=== PATIENT | female | born 1950 | race Caucasian/White ===

== ENCOUNTER → 2019-12-18 08:44 | Outpatient (CLI) | payer MEDICARE, SELFPAY ==
--- NOTE | 2019-12-18 09:13 | XR_ITS ---
PROCEDURE: XR DEXA AXIAL SKELETON CLINICAL HISTORY: POST MENOPAUSAL COMPARISON: No exams were available for comparison FINDINGS: Right femoral neck density is 0.683 grams/centimeters sq with T-score -1.5, osteopenia Total left proximal femur density 0.756 grams/centimeters sq with T-score -1.5, osteopenia L1-L4 density is 0.913 grams/centimeters sq with T-score -1.2, osteopenia IMPRESSION: Osteopenia with moderate fracture risk. Treatment advised. Suggest follow-up exam in 2 years Dictated by: Jose Boyd MD 12/18/2019 17:17 Electronically signed by Jose Boyd MD in [place] 12/18/2019 17:17
--- NOTE | 2019-12-18 11:05 | MM_ITS ---
PROCEDURE: MM DIG MAMM BI DX W/CAD Digital Breast Tomosynthesis Included CLINICAL INDICATION: PALPABLE RT BREAST NODULE, patient has had recent fall There is no personal or family history of breast cancer. The patient had previous mammograms but over 30 years ago and they are not available for review COMPARISON: US BREAST RT COMPLETE from 12/22/2019 TECHNIQUE: Standard CC and MLO images and 3D Tomosynthesis was obtained. R2 CAD reviewed. FINDINGS: Moderate diffuse fibroglandular densities are seen in the central portions of both breasts. There are numerous scattered microcalcifications a few of which suggest previous secretory disease, most of which are likely secondary to to sclerosing adenosis. There is a dominant asymmetric density with somewhat irregular borders upper inner quadrant right breast likely due to the palpable nodule. This could represent a hematoma in view of the recent injury. However ultrasound performed the same date showed a solid somewhat heterogenic appearing lesion more typical of a fibroadenoma corresponding in size and location to the palpable lesion. In view of the size of lesion measuring 2.9 x 3.5 x 2.1 cm and the lack of previous mammograms available for comparison, I would recommend biopsy of this lesion which could be performed with ultrasound guidance. IMPRESSION: . moderate somewhat heterogenic breast density with asymmetric density corresponding to the palpable nodule upper inner quadrant BI-RAD Category: 4 Suspicious Abnormality - Biopsy Considered FOLLOW-UP: BIO Biopsy Recommended (A letter has been sent to the patient regarding results of the study.) Dictated by: Dr. Phil Dillon MD 12/24/2019 08:[address] Phil Dillon MD in [place] 12/24/2019 08:11
== END ==
PROVIDERS: PCP Internal Medicine Adolescent Medicine; Visit Provider Internal Medicine Adolescent Medicine
DX: Z13.820 Encounter for screening for osteoporosis; Z78.0 Asymptomatic menopausal state; N63.12 Unspecified lump in the right breast, upper inner quadrant
CPT/HCPCS: 77062; 77066; 77080; G0279

== ENCOUNTER → 2019-12-22 08:53 | Outpatient (CLI) | payer MEDICARE, SELFPAY ==
--- NOTE | 2019-12-22 08:56 | US_ITS ---
PROCEDURE: US BREAST LT COMPLETE CLINICAL INDICATION: COMPARISON: MM DIG MAMM BI DX W/CAD from 12/18/2019 US BREAST RT COMPLETE from 12/22/2019 FINDINGS: There is an oval hypoechoic mass outer breast 2 o'clock position by 1.2 cm with somewhat homogeneous echogenicity and well-defined borders and this likely is a fibroadenoma. There is a tiny hypoechoic cystic-appearing lesion near the nipple 2 o'clock position measuring 0.4 by 0.6 x 0.3 cm. This is too small to characterize but probably is a complex cyst. There is somewhat heterogenic echogenicity of the remainder of the breast parenchyma. IMPRESSION: Probable fibroadenoma and probable complex cysts as described and leave the patient should have a six-month follow-up ultrasound to evaluate for interval stability and if there is a suspicious interval changes and mammogram could be performed at the same sitting. BI-RADS category 3 Dictated by: Dr. Phil Dillon MD 12/24/2019 08:[address] Phil Dillon MD in [place] 12/24/2019 08:21
--- NOTE | 2019-12-22 08:56 | US_ITS ---
PROCEDURE: US BREAST RT COMPLETE CLINICAL INDICATION: BREAST LUMP Upper inner quadrant, patient had recent fall 2 weeks ago COMPARISON: No exams were available for comparison FINDINGS: There is a dominant somewhat hypoechoic heterogenic appearing mass 1 o'clock position upper inner quadrant outer breast measuring 2.9 by 3.5 x 2.1 cm with slightly lobulated contours. The lesion is somewhat vascular. In addition there is a 2nd hypoechoic nodule just beneath the nipple with homogeneous echogenicity measuring 1.9 by 4.2 cm. This could represent asymmetric glandular elements but more likely is a fibroadenoma which is somewhat suspicious in appearance lacking the normal architectural appearance of a normal node. IMPRESSION: Dominant solid somewhat heterogenic being mass upper inner quadrant corresponding to the palpable lesion which could represent a fibroadenoma but in view of the lobulated borders and overall size biopsy is recommended. Biopsy of the 2nd subareolar nodule should be considered as well at the same sitting. Dictated by: Dr. Phil Dillon MD 12/24/2019 08:[address] Phil Dillon MD in [place] 12/24/2019 08:16
== END ==
PROVIDERS: PCP Internal Medicine Adolescent Medicine; Visit Provider Internal Medicine Adolescent Medicine
DX: N63.12 Unspecified lump in the right breast, upper inner quadrant (principal); N63.21 Unspecified lump in the left breast, upper outer quadrant
CPT/HCPCS: 76641

== ENCOUNTER → 2021-03-16 14:27 | Outpatient (CLI) | payer MEDICARE, SELFPAY ==
[2021-03-16 15:30] LABS: Basophils % 0.5 % (0.1-2.0); Eosinophils # 0.2 K/mm3 (0.0-0.4); Eosinophils % 2.2 % (0.1-12.0); Hematocrit 40.4 % (37.0-47.0); Lymphocytes # 1.4 K/mm3 (0.7-4.5); Lymphocytes % 17.5 % (10-50); Mean Corpuscular HGB Conc 32.1 g/dL (31.8-35.4); Mean Corpuscular Hemoglobin 27.4 pg (27.0-31.2); Mean Corpuscular Volume 85.3 fl (81-99); Mean Platelet Volume 12.4 fl (7.4-10.4); Monocytes # 0.3 K/mm3 (0.1-1.0); Monocytes % 4.4 % (1.7-9.3); Neutrophils # 5.9 K/mm3 (1.8-7.8); Neutrophils % 75.4 % (37.0-80.0); Red Blood Count 4.73 M/mm3 (4.20-5.40); Red Cell Distribution Width 13.5 % (11.5-17.5); White Blood Count 7.8 K/mm3 (4.8-10.8)
[2021-03-16 15:57] LABS: Alanine Aminotransferase 13 U/L (12-78); Albumin Level 4.1 g/dl (3.5-5.0); Albumin/Globulin Ratio 1.6 (1.1-1.8); Alkaline Phosphatase 95 U/L (38-126); Anion Gap 13.9 mEq/L (5-15); Aspartate Amino Transferase 24 U/L (14-36); Bilirubin,Total 0.4 mg/dl (0.2-1.3); Blood Urea Nitrogen 15 mg/dl (7-17); Calcium 9.4 mg/dl (8.4-10.2); Carbon Dioxide 26 mmol/L (22.0-30.0); Chloride 105 mmol/L (98-107); Estimated Glomerular Filt Rate 82 ml/min (>60); GFR (African American) 100 ML/MIN (>60); Globulin 2.5 g/dL (1.3-3.2); Glucose 81 mg/dl (74-100); Potassium 4.9 mmoL/L (3.5-5.1); Sodium 140 mmol/L (136-145); Total Protein,Serum 6.6 g/dl (6.3-8.2)
[2021-03-16 16:22] LABS: Platelet Count 7 K/mm3 (142-424)
== END ==
PROVIDERS: Visit Provider Nurse Practitioner Family
DX: I10 Essential (primary) hypertension (principal)
CPT/HCPCS: 36415; 80053; 85025

== ENCOUNTER → 2021-09-30 11:03 | Outpatient (CLI) | payer MEDICARE, SELFPAY ==
--- NOTE | 2021-09-30 11:08 | MR_ITS ---
FINAL REPORT CLINICAL HISTORY: TREMOR, LYMPHOMA OF LYMPH NODES OF HEAD, ATAXIA FINDINGS: Multiplanar MR imaging of the brain was performed without contrast. There is mild age-appropriate atrophy. There are scattered foci of increased T2 signal in the cerebral white matter that have a nonspecific appearance but likely represent mild chronic ischemic/gliotic changes. There is no evidence of intracranial hemorrhage or mass. No abnormal ventricular dilatation is identified. No abnormal extra-axial fluid collection is seen. No abnormality is seen on the diffusion weighted images. The posterior fossa and brainstem are unremarkable. Normal major vessel vascular flow voids are seen. IMPRESSION: Age-appropriate atrophy and mild chronic ischemic/gliotic changes. No acute intracranial abnormality. Reviewed, Interpreted and Dictated by Ranjit Nettles III, MD Transcribed by Shelley Mcleod Authenticated by Ranjit Nettles III, MD on 09/30/2021 02:55:46 PM [facility]
== END ==
PROVIDERS: PCP Internal Medicine Adolescent Medicine; Visit Provider Internal Medicine Adolescent Medicine
DX: R25.1 Tremor, unspecified (principal); R27.0 Ataxia, unspecified; C85.91 Non-Hodgkin lymphoma, unspecified, lymph nodes of head, face, and neck
CPT/HCPCS: 70551

== ENCOUNTER → 2022-01-03 14:09 | Outpatient (CLI) | payer MEDICARE, SELFPAY ==
--- NOTE | 2022-01-03 14:15 | XR_ITS ---
FINAL REPORT CLINICAL HISTORY: LOW BACK PAIN IN MULTIPLY SITES FINDINGS: LUMBAR SPINE 5 views of the lumbar spine were obtained. There is no evidence of fracture or dislocation. There is leftward curvature. There is mild anterolisthesis of L4 on L5. There is mild and moderate degenerative change. There is facet arthropathy in the lower lumbar spine. Several pelvic calcifications may represent phleboliths. There is a presumed 11 mm left renal stone. IMPRESSION: [id number] degenerative change as above. Presumed 11 mm left renal stone. Reviewed, Interpreted and Dictated by Ranjit Nettles III, MD Transcribed by Marleen Martinez Authenticated and [facility]
== END ==
PROVIDERS: PCP Internal Medicine Adolescent Medicine; Visit Provider Internal Medicine Adolescent Medicine
DX: M54.50 Low back pain, unspecified (principal)
CPT/HCPCS: 72110

== ENCOUNTER 2022-06-26 10:13 | Observation (INO) | payer MEDICARE, SELFPAY ==
[2022-06-26] VITALS (16 sets, daily range): BP systolic 105–200; BP diastolic 43–88; PULSE 68–92; RESP 16–18; TEMP 36.6–37.2; O2SAT 95–99; BMI 34.0; BMI 32.5
--- NOTE | 2022-06-26 10:13 | ECG_ITS ---
APPROVED REPORT Exam: Resting ECG HR:91 bpm ECG Measurements Heart Rate 91 AXES PA 212 P 48 QRSd 94 QRS 60 QT 324 T 34 QTc 373 Conclusion SINUS RHYTHM WITH FIRST DEGREE AV BLOCK ABNORMAL ECG UNCONFIRMED REPORT Electronically signed by : Earle Rincon MD 06/27/2022 20:15:33
--- NOTE | 2022-06-26 10:16 | XR_ITS ---
PROCEDURE INFORMATION: Exam: XR Chest Exam date and time: 06/26/2022 10:32 AM Age: 72 years old Clinical indication: Pain; Chest pressure; Additional info: Chest pain TECHNIQUE: Imaging protocol: Radiologic exam of the chest. Views: 1 view. COMPARISON: No relevant prior studies available. FINDINGS: Lungs: No focal airspace disease. Pleural spaces: Unremarkable. No pleural effusion. No pneumothorax. Heart/Mediastinum: Cardiomediastinal silhouette is within normal limits. Bones/joints: Unremarkable. IMPRESSION: No acute cardiopulmonary abnormality.
--- NOTE | 2022-06-26 10:31 | PC.NURSE ---
DR. REVELES AT BEDSIDE
--- NOTE | 2022-06-26 10:32 | US_ITS ---
PROCEDURE INFORMATION: Exam: US Abdomen, Limited; Right Upper Quadrant Exam date and time: 06/26/2022 11:17 AM Age: 72 years old Clinical indication: Abdominal pain; Acute; Additional info: Ruq pain, one episode vomiting TECHNIQUE: Imaging protocol: Real time ultrasound of the abdomen with image documentation. Limited exam focused on the right upper quadrant. COMPARISON: No relevant prior studies available. FINDINGS: Liver: Normal size, contour and echotexture of the liver. There is a heterogeneous mildly hyperechoic lesion in the left hepatic lobe measuring up to 3 cm. Gallbladder: Cholelithiasis. There may be mild mural thickening with trace pericholecystic edema. The gallbladder is not overly distended. No sonographic King's sign was reported by the printing pressman. Biliary ducts: The common bile duct measures up to 5 mm. Query mild intrahepatic biliary dilation. Pancreas: Limited visualization of the pancreas. Visualized portions appear unremarkable. Right kidney: The right kidney measures up to 10.1 cm in length. No hydronephrosis. No masses. Portal venous: Patent main portal vein with antegrade flow. IMPRESSION: 1. Cholelithiasis with sonographic findings equivocal for cholecystitis. HIDA scan could provide further evaluation. 2. The common bile duct is of normal calibre, but there may be some mild intrahepatic biliary dilation. 3. There is a heterogeneous solid-appearing lesion in the left hepatic lobe measuring up to 3 cm. Recommend further evaluation with MRI with and without contrast.
--- NOTE | 2022-06-26 10:34 | HMH.EDGENADL ---
Discharge Plan Disposition Patient Disposition: Admitted As Inpatient Clinical Impressions Clinical Impression: Cholecystitis, COVID Discharge ED Provider: Bayron Hernandez General Adult HPI General Chief complaint: Chest Pain Stated complaint: CP Time Seen by Provider: 06/26/22 10:34 Mode of Arrival: Wheelchair Limitations: No Limitations Description of Symptoms (Recalled from ER Triage Doc. by RN): PT WITH CHEST PAIN AND PAIN UNDER RIGHT BREAST SINCE SUNDAY EVENING. History of Present Illness HPI narrative: Patient is a 72-year-old female with past medical history of tremor of the right upper extremity presents emergency department for evaluation of epigastric pain. Onset was acute, occurring for the last 3 days, 1 episode of nonbloody nonbilious vomiting, still passing flatus, still having bowel movements, no dysuria. There is associated right upper quadrant pain that is moderate to severe in intensity. No cough, no sick contacts, no other acute complaints at this time. Related Data Home Medications Medication Instructions Recorded Confirmed celecoxib 200 mg capsule 200 mg PO DAILY Arthritis 06/26/22 06/26/22 ergocalciferol (vitamin D2) 1,250 1,250 mcg PO WEEKLY Supplement 06/26/22 06/26/22 mcg (50,000 unit) capsule primidone 50 mg tablet 50 mg PO HS Tremors 06/26/22 06/26/22 Allergies Allergy/AdvReac Type Severity Reaction Status Date / Time No Known Allergies Allergy Verified 06/26/22 18:[address] [facility] Disclaimer: The information contained in this section may have been updated after the patient was seen, as this information can be updated by other users. Medical History History of anemia History of COVID-19 Hypertension Menopause Non-Hodgkin lymphoma Surgical History No significant past surgical history Family History Other No significant family history Social History Smoking Status: Never smoker alcohol intake: never substance use type: denies use current occupational status: retired Travel in the last 8 weeks: None ROS Obtained: Yes Systems reviewed as appropriate & no additional complaints except as documented Physical Exam General General appearance: alert and in no apparent distress Head Head exam: atraumatic and normocephalic Eye Eye exam: Present PERRL and EOMI ENT ENT exam: Present mucous membranes moist Neck Neck exam: Present normal inspection Chest Chest inspection: Present normal inspection and symmetric chest wall rise Respiratory Respiratory exam: Present normal lung sounds bilaterally; Absent respiratory distress Cardiovascular Cardiovascular exam: Present regular rate and normal rhythm Abdominal Exam Abdominal exam: Present soft; Absent tenderness Extremities Exam Extremities exam: Present normal inspection Neurological Exam Neurological exam: Present alert and oriented X3 Psychiatric Psychiatric exam: Present normal affect Skin Skin exam: Present warm and dry Medical Decision Making Mundo Inquiry Pt receiving controlled substance: No Vital Signs: 06/26/22 10:15 06/26/22 11:01 06/26/22 12:00 Temperature 98.4 F Temperature Source Oral Pulse Rate 87 82 Pulse Rate [Apical] 87 Respiratory Rate 18 Blood Pressure 129/78 132/72 Blood Pressure [Right Arm] 200/88 H Blood Pressure Mean 87 92 Blood Pressure Mean [Right Arm] 125 Blood Pressure Source Blood Pressure Source [Right Arm] Automatic Cuff Blood Pressure Position Blood Pressure Position [Right Arm] Sitting 02 Sat by Pulse Oximetry 99 98 98 Oxygen Delivery Method Room Air Room Air Room Air 06/26/22 12:30 06/26/22 13:00 06/26/22 13:30 Temperature Temperature Source Pulse Rate 85 84 83 Pulse Rate [Apical] Respiratory Rate
[2022-06-26 10:41] LABS: Chloride 100 mmol/L (98-107)
[2022-06-26 10:42] LABS: Potassium 4.5 mmoL/L (3.5-5.1); Sodium 137 mmol/L (136-145)
[2022-06-26 10:44] LABS: Alanine Aminotransferase 105 U/L (12-78); Alkaline Phosphatase 227 U/L (38-126); Anion Gap 13.5 mEq/L (5-15); Aspartate Amino Transferase 75 U/L (14-36); Bilirubin,Total 0.7 mg/dl (0.2-1.3); Blood Urea Nitrogen 19 mg/dl (7-17); Carbon Dioxide 28 mmol/L (22.0-30.0); Creatinine Clearance Estimated 66 mL/min (50-200); Estimated Glomerular Filt Rate 82 ml/min (>60); GFR (African American) 100 ML/MIN (>60); Lipase 37 U/L (23-300)
[2022-06-26 10:45] LABS: Albumin Level 3.9 g/dl (3.5-5.0); Albumin/Globulin Ratio 1.4 (1.1-1.8); Calcium 9.6 mg/dl (8.4-10.2); Globulin 2.8 g/dL (1.3-3.2); Glucose 103 mg/dl (74-100); Total Protein,Serum 6.7 g/dl (6.3-8.2)
[2022-06-26 11:01] LABS: Troponin I < 0.01 ng/ml (0.00-0.034)
[2022-06-26 11:06] LABS: Influenza A, PCR Not Detected (NotDetected); Influenza B, PCR Not Detected (NotDetected)
--- NOTE | 2022-06-26 11:11 | PC.NURSE ---
pt to US via WC with identification technician
[2022-06-26 11:32] LABS: Coronavirus 19, PCR Detected (NotDetected)
[2022-06-26 11:34] LABS: Basophils % 0.3 % (0.1-2.0); Eosinophils # 0.2 K/mm3 (0.0-0.4); Eosinophils % 1.9 % (0.1-12.0); Hematocrit 40.6 % (37.0-47.0); Hemoglobin 13.3 g/dL (12.2-16.2); Lymphocytes % 11.4 % (10-50); Mean Corpuscular HGB Conc 32.9 g/dL (31.8-35.4); Mean Corpuscular Hemoglobin 28.4 pg (27.0-31.2); Mean Corpuscular Volume 86.3 fl (81-99); Mean Platelet Volume 8.5 fl (7.4-10.4); Monocytes # 0.5 K/mm3 (0.1-1.0); Neutrophils # 7.2 K/mm3 (1.8-7.8); Neutrophils % 80.5 % (37.0-80.0); Platelet Count 356 K/mm3 (142-424); Red Cell Distribution Width 13.6 % (11.5-17.5)
--- NOTE | 2022-06-26 11:43 | PC.NURSE ---
PT RETURNED FROM RADIOLOGY
--- NOTE | 2022-06-26 12:14 | CT_ITS ---
PROCEDURE INFORMATION: Exam: CT Abdomen And Pelvis With Contrast Exam date and time: 06/26/2022 12:40 PM Age: 72 years old Clinical indication: Abdominal pain; Localized; Right upper quadrant (ruq); Additional info: Epigastric/ruq pain, elevated lfts TECHNIQUE: Imaging protocol: Computed tomography of the abdomen and pelvis with contrast. Radiation optimization: All CT scans at this facility use at least one of these dose optimization techniques: automated exposure control; mA and/or kV adjustment per patient size (includes targeted exams where dose is matched to clinical indication); or iterative reconstruction. Contrast material: ISOVUE; Contrast volume: 75 ml; Contrast route: IV; COMPARISON: US ABDOMEN LIMITED 06/26/2022 11:17 AM FINDINGS: Liver: Multilobulated lesion in the left hepatic lobe measuring up to 6.5 cm has some heterogeneous enhancement. Gallbladder and bile ducts: Cholelithiasis with mild gallbladder wall thickening and pericholecystic edema. Mild intrahepatic biliary dilation. Pancreas: Normal. No ductal dilation. Spleen: Normal. No splenomegaly. Adrenal glands: Normal. No mass. Kidneys and ureters: Normal. No hydronephrosis. Stomach and bowel: Unremarkable. No obstruction. No mucosal thickening. Appendix: No evidence of appendicitis. Intraperitoneal space: Unremarkable. No free air. No significant fluid collection. Vasculature: Unremarkable. No abdominal aortic aneurysm. Lymph nodes: Unremarkable. No enlarged lymph nodes. Urinary bladder: Unremarkable as visualized. Reproductive: Uterine fibroids are seen. Bones/joints: Remote L1 compression fracture. Soft tissues: Small fat containing periumbilical hernia. There is some soft tissue thickening along the right pleural surface. Other findings: There is some ill-defined soft tissue density material in the presacral region on series 3, image 88, nonspecific. IMPRESSION: 1. Findings are concerning for acute cholecystitis. 2. Indeterminate liver lesion in segment 2 measuring up to 6.5 cm. Recommend further characterization with MRI with and without contrast. 3. There is some soft tissue thickening along the right pleural surface and some ill-defined soft tissue in the presacral space. In combination with the indeterminate liver lesion, these findings raise concern for malignancy. The pleural based soft tissue would be amenable to percutaneous tissue sampling. THIS REPORT CONTAINS FINDINGS THAT MAY BE CRITICAL TO PATIENT CARE. The findings were verbally communicated via telephone conference with Bayron Hernandez at 1:08 PM EST on 06/26/2022. The findings were acknowledged and understood.
--- NOTE | 2022-06-26 12:16 | PC.NURSE ---
DR. REVELES AT BEDSIDE TO UPDATE PT ON POC
--- NOTE | 2022-06-26 12:35 | PC.NURSE ---
PT TO CT AT THIS TIME
--- NOTE | 2022-06-26 12:48 | PC.NURSE ---
PT RETURNED FROM CT
--- NOTE | 2022-06-26 13:20 | PC.NURSE ---
1321 ROUNDED ON PT, AT BEDSIDE. NO NEEDS AT THIS TIME
[2022-06-26 14:29] LABS: Troponin I < 0.01 ng/ml (0.00-0.034)
--- NOTE | 2022-06-26 14:38 | PC.NURSE ---
ROUNDED ON PT, NO NEEDS AT THIS TIME. CALL LIGHT WITHIN REACH
--- NOTE | 2022-06-26 14:52 | PC.NURSE ---
called [facility] per ER Doctor to speak with someone in general surgery. spoke with the call center and they were paging Sotero Calle to call us back here at [facility].
--- NOTE | 2022-06-26 14:59 | PC.NURSE ---
[facility] would not accept, calling [facility]
--- NOTE | 2022-06-26 15:02 | PC.NURSE ---
Spoke with Dequan in radiology, she is power-sharing images
--- NOTE | 2022-06-26 15:52 | PC.NURSE ---
Contacted [facility] again to check on status of consult with our MD and they report they will re-page that surgical team for consult.
--- NOTE | 2022-06-26 16:07 | PC.NURSE ---
Dr. Hernandez speaking with [facility] health information tech surgeon at this time
--- NOTE | 2022-06-26 16:09 | PC.NURSE ---
DR. REVELES AT BEDSIDE TO UPDATE PT AND
--- NOTE | 2022-06-26 16:25 | PC.NURSE ---
SARWAT REYES at
--- NOTE | 2022-06-26 16:29 | PC.NURSE ---
SARWAT REYES speaking with Hospitalist at this time
--- NOTE | 2022-06-26 16:34 | PC.NURSE ---
Spoke with Jaci regarding admission
--- NOTE | 2022-06-26 17:03 | PC.NURSE ---
PLACED PATIENT IN A ROOM ASSIGMENT
--- NOTE | 2022-06-26 17:33 | PC.NURSE ---
REPORT GIVEN TO Aida MALLORY RN
--- NOTE | 2022-06-26 17:58 | PC.NURSE ---
PT UPDATED AT THIS TIME ON POC
--- NOTE | 2022-06-26 18:12 | PC.NURSE ---
pt taken to 2nd floor via WC with Scot, EMT
--- NOTE | 2022-06-26 18:13 | PC.NURSE ---
patient has arrived by wheelchair from ED
--- NOTE | 2022-06-26 20:01 | EXP.HP ---
History of Present Illness *Admission Date: 06/26/22 *Reason for visit:: Epigastric pain *History of present illness: 72-year-old female with history of ?non hodgkin? lymphoma ( follows at [facility]) presents emergency department for evaluation after having 1 week of epigastric pain radiating to her chest and back between scapula. Pain somewhat constant with fluctuating episodes. Associated with nausea. Has no fevers or chills. Initially thought that her symptoms were due to exercise but after continued persistence she went for evaluation. She is currently requesting a meal due to hunger. Denies early satiety hematemesis or blood in stool. Otherwise she has no concerns or complaints at this time. States she received chemotherapy for the lymphoma for few months but it was stopped due to poor tolerance. She is currently not on chemotherapy or radiation. No further history able to be obtained as patient is unsure. Records will be needed. [facility] Disclaimer: The information contained in this section may have been updated after the patient was seen, as this information can be updated by other users. Medical History History of anemia History of COVID-19 Hypertension Menopause Non-Hodgkin lymphoma Surgical History No significant past surgical history Family History Other No significant family history Social History Smoking Status: Never smoker alcohol intake: never substance use type: denies use current occupational status: retired Travel in the last 8 weeks: None Review of Systems Review of Systems Review of systems:: pertinent systems reviewed and negative unless documented below Constitutional Constitutional: Reports fatigue and Reports weakness Eyes Eyes: Reports system reviewed and no additional complaints, except as documented ENT Ears, Nose, Mouth, and Throat: Reports system reviewed and no additional complaints, except as documented and Denies dysphagia *Cardiovascular Cardiovascular: Reports chest pain, Denies chest pain at rest, Denies chest pain with activity, Denies dyspnea and Denies pedal edema *Respiratory Respiratory: Denies dyspnea and Denies pain on inspiration *Gastrointestinal Gastrointestinal: Reports abdominal pain, Denies change in bowel habits, Denies coffee ground emesis, Denies dysphagia and Denies vomiting *Genitourinary Genitourinary: Reports system reviewed and no additional complaints, except as documented *Musculoskeletal Musculoskeletal: Reports system reviewed and no additional complaints, except as documented *Neurologic Neurologic: Reports tremor(s) and Reports weakness Psychiatric Psychiatric: Reports system reviewed and no additional complaints, except as documented Endocrine Endocrine: Reports system reviewed and no additional complaints, except as documented and Reports fatigue Hematologic/Lymphatic Hematologic/Lymphatic: Reports as per [facility] Meds Home Medications and Allergies Home Medications Medication Instructions Recorded Confirmed Type celecoxib 200 mg capsule 200 mg PO DAILY Arthritis 06/26/22 06/26/22 History ergocalciferol (vitamin D2) 1,250 1,250 mcg PO WEEKLY Supplement 06/26/22 06/26/22 History mcg (50,000 unit) capsule primidone 50 mg tablet 50 mg PO HS Tremors 06/26/22 06/26/22 History New Prescriptions to Start Prescriptions: Allergies Allergy/AdvReac Type Severity Reaction Status Date / Time No Known Allergies Allergy Verified 06/26/22 18:31 Exam Data for Last 24 hours Vital signs and Labs for Last 24 Hours: Temp Pulse Resp BP Pulse Ox 98.6 F 79 16 152/82 H 99 06/26/22 18:29 06/26/22 18:29 06/26/22 18:29 06/26/22 18:29 06/26/22 18:29 Laboratory Results - last 24 hr 06/26/22 10:20: WBC
--- NOTE | 2022-06-26 20:15 | EXP.HP ---
History of Present Illness *Admission Date: 06/26/22 *History of present illness: 72-year-old female with history of ?non hodgkin? lymphoma ( follows at [facility]) presents emergency department for evaluation after having 1 week of epigastric pain radiating to her chest and back between scapula. Pain somewhat constant with fluctuating episodes. Associated with nausea. Has no fevers or chills. Initially thought that her symptoms were due to exercise but after continued persistence she went for evaluation. She is currently requesting a meal due to hunger. Denies early satiety hematemesis or blood in stool. Otherwise she has no concerns or complaints at this time. States she received chemotherapy for the lymphoma for few months but it was stopped due to poor tolerance. She is currently not on chemotherapy or radiation. No further history able to be obtained as patient is unsure. Records will be needed. [facility] Disclaimer: The information contained in this section may have been updated after the patient was seen, as this information can be updated by other users. Medical History History of anemia History of COVID-19 Hypertension Menopause Non-Hodgkin lymphoma Surgical History No significant past surgical history Family History Other No significant family history Social History Smoking Status: Never smoker alcohol intake: never substance use type: denies use current occupational status: retired Travel in the last 8 weeks: None Review of Systems Constitutional Constitutional: Reports weakness *Neurologic Neurologic: Reports tremor(s) and Reports weakness Meds Home Medications and Allergies Home Medications Medication Instructions Recorded Confirmed Type celecoxib 200 mg capsule 200 mg PO DAILY Arthritis 06/26/22 06/26/22 History ergocalciferol (vitamin D2) 1,250 1,250 mcg PO WEEKLY Supplement 06/26/22 06/26/22 History mcg (50,000 unit) capsule primidone 50 mg tablet 50 mg PO HS Tremors 06/26/22 06/26/22 History New Prescriptions to Start Prescriptions: Allergies Allergy/AdvReac Type Severity Reaction Status Date / Time No Known Allergies Allergy Verified 06/26/22 18:31 Exam Data for Last 24 hours Vital signs and Labs for Last 24 Hours: Temp Pulse Resp BP Pulse Ox 98.6 F 79 16 152/82 H 99 06/26/22 18:29 06/26/22 18:29 06/26/22 18:29 06/26/22 18:29 06/26/22 18:29 Laboratory Results - last 24 hr 06/26/22 10:20: WBC 9.0, RBC 4.70, Hgb 13.3, Hct 40.6, MCV 86.3, MCH 28.4, MCHC 32.9, RDW 13.6, Plt Count 356, MPV 8.5, Neut % (Auto) 80.5 H, Lymph % (Auto) 11.4, [place] % (Auto) 6.0, Eos % (Auto) 1.9, Baso % (Auto) 0.3, Neut # (Auto) 7.2, Lymph # (Auto) 1.0, [place] # (Auto) 0.5, Eos # (Auto) 0.2, Baso # (Auto) 0.0 06/26/22 10:20: Troponin I < 0.01 06/26/22 10:20: Sodium 137, Potassium 4.5, Chloride 100, Carbon Dioxide 28, Anion Gap 13.5, BUN 19 H, Creatinine 0.70, Estimated Creat Clear 66, Estimated GFR 82, Est GFR ( Amer) 100, Glucose 103 H, Calcium 9.6, Total Bilirubin 0.7, AST 75 H, ALT 105 H, Alkaline Phosphatase 227 H, Total Protein 6.7, Albumin 3.9, Globulin 2.8, Albumin/Globulin Ratio 1.4, Lipase 37 06/26/22 10:59: SARS-CoV-2 (PCR) Detected A, Influenza A Untype (PCR) Not detected, Influenza Type B (PCR) Not detected 06/26/22 13:45: Troponin I < 0.01 I & O for Last 24 hours: Intake & Output 06/23/22 06/24/22 06/25/22 06/26/22 23:59 23:59 23:59 23:59 Output Total 300 / 300 Balance -300 / -300 Weight 80.739 kg Assessment and Plan *Assessment and plan (1) Liver mass: Status: Acute Category: Medical Code(s): R16.0 - Hepatomegaly, not elsewhere classified (2) COVID: Status: Acute Sara
[2022-06-27] VITALS (7 sets, daily range): BP systolic 134–168; BP diastolic 51–77; PULSE 65–89; RESP 16–18; TEMP 36.5–37.2; O2SAT 96–100; BMI 31.7
--- NOTE | 2022-06-27 03:58 | PC.NURSE ---
Pt. on airborne precautions for covid positive result. She is in the 90's on RA. Alert and oriented times 4 and she needs no assistance getting up from the bed. She is receiving IV abx and awaiting D/C to for surgery.
[2022-06-27 07:29] LABS: Chloride 104 mmol/L (98-107); Sodium 138 mmol/L (136-145)
[2022-06-27 07:30] LABS: Potassium 3.8 mmoL/L (3.5-5.1)
[2022-06-27 07:32] LABS: Alanine Aminotransferase 75 U/L (12-78); Albumin Level 3.3 g/dl (3.5-5.0); Albumin/Globulin Ratio 1.4 (1.1-1.8); Alkaline Phosphatase 209 U/L (38-126); Anion Gap 9.8 mEq/L (5-15); Aspartate Amino Transferase 54 U/L (14-36); Bilirubin,Total 0.6 mg/dl (0.2-1.3); Blood Urea Nitrogen 17 mg/dl (7-17); Carbon Dioxide 28 mmol/L (22.0-30.0); Creatinine Clearance Estimated 65 mL/min (50-200); Estimated Glomerular Filt Rate 71 ml/min (>60); GFR (African American) 85 ML/MIN (>60); Globulin 2.3 g/dL (1.3-3.2); Phosphorous 3.9 mg/dl (2.5-4.5); Total Protein,Serum 5.6 g/dl (6.3-8.2)
[2022-06-27 07:33] LABS: Calcium 8.9 mg/dl (8.4-10.2); Glucose 86 mg/dl (74-100); INR 1.09 (0.9-1.1); Magnesium 2.1 mg/dl (1.6-2.3); Prothrombin Time 11.7 seconds (10.1-12.5)
[2022-06-27 07:50] LABS: Basophils % 0.6 % (0.1-2.0); Eosinophils # 0.2 K/mm3 (0.0-0.4); Eosinophils % 3.4 % (0.1-12.0); Hematocrit 34.3 % (37.0-47.0); Lymphocytes # 0.7 K/mm3 (0.7-4.5); Lymphocytes % 10.7 % (10-50); Mean Corpuscular HGB Conc 34.5 g/dL (31.8-35.4); Mean Corpuscular Hemoglobin 28.7 pg (27.0-31.2); Mean Corpuscular Volume 83.3 fl (81-99); Mean Platelet Volume 7.9 fl (7.4-10.4); Monocytes # 0.5 K/mm3 (0.1-1.0); Monocytes % 8.5 % (1.7-9.3); Neutrophils # 4.8 K/mm3 (1.8-7.8); Neutrophils % 76.9 % (37.0-80.0); Platelet Count 363 K/mm3 (142-424); Red Blood Count 4.12 M/mm3 (4.20-5.40); Red Cell Distribution Width 13.7 % (11.5-17.5); White Blood Count 6.2 K/mm3 (4.8-10.8)
[2022-06-27 07:53] LABS: Hemoglobin 11.7 g/dL (12.2-16.2)
--- NOTE | 2022-06-27 08:20 | HMH.PHAINT1 ---
Pharmacy Intervention Comments: HOME MEDICATION LIST VERIFIED USING LIST FROM OUTPATIENT PHARMACY
--- NOTE | 2022-06-27 12:13 | EXP.ACUTE.PN ---
Subjective *Date: 06/27/22 *Time: 18:27 Interval history: Patient's abdominal/chest discomfort resolved this morning. Denies any nausea, vomiting, diarrhea. States she was having right upper quadrant pain radiating to her back. On exam, she is pain-free. Stable on room air. No fever overnight. Would like to eat. Surgery evaluated, no plan for surgery at this time. Discussed findings on her imaging of her gallbladder and liver mass. Patient has extensive history of lymphoma. Discussed case with , no intention to perform procedure at this time. No plan to transfer. Medically improving on exam this morning Medical Exam Vital signs and Labs for Last 24 Hours: Vital Signs Temp Pulse Pulse Resp BP BP Pulse Ox 06/27/22 08:00 97.7 F 69 16 165/75 H 98 06/27/22 04:00 98.5 F 89 18 135/51 L 99 06/27/22 00:00 98.4 F 85 16 134/77 97 06/26/22 20:00 98.9 F 80 18 153/76 H 95 06/26/22 18:29 98.6 F 79 16 152/82 H 99 06/26/22 18:09 97.9 F 68 18 135/54 L 06/26/22 17:00 76 124/49 L 98 06/26/22 16:30 75 120/57 L 98 06/26/22 16:00 76 116/47 L 97 06/26/22 15:30 80 112/47 L 97 06/26/22 15:00 105/58 L 98 06/26/22 14:31 115/43 L 97 06/26/22 14:00 92 H 149/73 H 99 06/26/22 13:30 83 145/73 H 99 06/26/22 13:00 84 120/61 97 06/26/22 12:30 85 142/77 H 96 Intake and Output 06/26/22 06/27/22 06/27/22 23:59 07:59 15:59 Intake Total 200 / 200 Output Total 300 / 300 300 / 300 Balance -300 / -300 -100 / -100 Intake: Intake, Oral Amount 0 / 0 Intake, Total IV Amount 200 / 200 Piperacillin/Tazo 4.5 gm In 0.9 200 / 200 % Sodium Chloride 100 ml @ 200 mls/hr IV Q8H [facility] Rx#:[id number] Output: Output, Urine Amount 300 / 300 300 / 300 Other: Number of Unmeasured Voids 0 Weight 80.739 kg 81.193 kg Patient Weight 06/27/22 23:59 Weight 81.193 kg Laboratory Results - last 24 hr 06/26/22 13:45: Troponin I < 0.01 06/27/22 06:18: WBC 6.2 D, RBC 4.12 L, Hgb 11.7 L D, Hct 34.3 L, MCV 83.3, MCH 28.7, MCHC 34.5, RDW 13.7, Plt Count 363, MPV 7.9, Neut % (Auto) 76.9, Lymph % (Auto) 10.7, [place] % (Auto) 8.5, Eos % (Auto) 3.4, Baso % (Auto) 0.6, Neut # (Auto) 4.8, Lymph # (Auto) 0.7, [place] # (Auto) 0.5, Eos # (Auto) 0.2, Baso # (Auto) 0.0 06/27/22 06:18: PT 11.7, INR 1.09 06/27/22 06:18: Sodium 138, Potassium 3.8, Chloride 104, Carbon Dioxide 28, Anion Gap 9.8, BUN 17, Creatinine 0.80, Estimated Creat Clear 65, Estimated GFR 71, Est GFR ( Amer) 85, Glucose 86, Calcium 8.9, Phosphorus 3.9, Magnesium 2.1, Total Bilirubin 0.6, AST 54 H D, ALT 75 D, Alkaline Phosphatase 209 H, Total Protein 5.6 L, Albumin 3.3 L D, Globulin 2.3, Albumin/Globulin Ratio 1.4 I & O for Labs for Last 24 Hours: Intake & Output 06/24/22 06/25/22 06/26/22 06/27/22 23:59 23:59 23:59 23:59 Intake Total 200 / 200 Output Total 300 / 300 300 / 300 Balance -300 / -300 -100 / -100 Weight 80.739 kg 81.193 kg Constitutional: Present no acute distress and obese Head: Present atraumatic and normocephalic ENT: Present normal exam Neck: Present normal inspection Respiratory: Present normal respiratory effort; Absent accessory muscle use, rhonchi, wheezes or crackles Cardiac: Present Reg Rate and Rhythm GI: Present soft and normal bowel sounds; Absent distention, tenderness or guarding Extremities: Present normal inspection and full ROM Skin: Present intact; Absent erythema Neuro: Present Grossly Intact, alert, awake, oriented x 3 and moves all extremities Assessment and Plan *Assessment and plan (1) Liver mass: Status: Acute Category: Medical Code(s): R16.0 - Hepatomegaly, not elsewhere classified (2) Cholecystitis: Status: Acute Category: Medical Code(s): K81.9 - Cholecystitis, unspecified (3) COVID: Status: Acute Category: Medical Code(s):
--- NOTE | 2022-06-27 14:30 | EXP.SURG.CON ---
History of Present Illness *Admission Date: 06/26/22 *Reason for visit:: Cholecystitis *History of present illness: Patient is a 72-year-old female with apparent history of lymphoma and is followed at [facility]. She had presented to the emergency department yesterday on 06/26/2022 with a 1 week history of pain in her lower substernal area and right thoracoabdominal area radiating into her back and scapula. These have been fluctuating episodes without fevers. Patient apparently initially thought her symptoms were due to exercise but after continued persistence she presented for evaluation at the emergency department. Evaluation in the emergency department in the afternoon of 06/26/2022 revealed a normal white blood cell count. She had elevation of AST to 75 and ALT to 105 with alkaline phosphatase of 227. She underwent a CT scan of the abdomen and pelvis which revealed findings concerning for cholecystitis (gallstones, mild gallbladder wall thickening, pericholecystic edema). Most notable, however, she had indeterminate multi-lobulated liver lesion in segment 2 measuring up to 6.5 cm. There was soft tissue thickening along the right pleural surface and ill-defined soft tissue in the presacral space. The combination of the liver mass and soft tissue thickening raised concern for possible malignancy. At this time surgery was contacted by the ER physician. Her CT was reviewed. Given the potential for intra-abdominal malignancy it was felt that she would best be served at higher level care facility. Apparently lack of bed availability has limited this and she had been admitted to this facility awaiting a bed. [facility] had been contacted and had considered possible transport to their facility for ERCP with return post procedure to this facility. Patient did have an ultrasound of the abdomen done. Surgical consultation was obtained this afternoon due to the patient remaining an inpatient at this facility. Patient does have positivity for SARS-CoV-2 but is asymptomatic. [facility] Disclaimer: The information contained in this section may have been updated after the patient was seen, as this information can be updated by other users. Medical History History of anemia History of COVID-19 Hypertension Menopause Non-Hodgkin lymphoma Surgical History No significant past surgical history Family History Other No significant family history Social History Smoking Status: Never smoker alcohol intake: never substance use type: denies use current occupational status: retired Travel in the last 8 weeks: None Review of Systems Constitutional Constitutional: Reports weakness *Neurologic Neurologic: Reports tremor(s) and Reports weakness Meds Home Medications and Allergies Home Medications Medication Instructions Recorded Confirmed Type celecoxib 200 mg capsule 200 mg PO BID Arthritis 06/26/22 06/27/22 History ergocalciferol (vitamin D2) 1,250 1,250 mcg PO WEEKLY Supplement 06/26/22 06/26/22 History mcg (50,000 unit) capsule primidone 50 mg tablet 50 mg PO HS Tremors 06/26/22 06/26/22 History New Prescriptions to Start Prescriptions: Allergies Allergy/AdvReac Type Severity Reaction Status Date / Time No Known Allergies Allergy Verified 06/26/22 18:31 Exam (Inpt) Vital signs and Labs for Last 24 Hours: Temp Pulse Resp BP Pulse Ox 98.6 F 65 16 142/65 H 98 06/27/22 12:00 06/27/22 12:00 06/27/22 12:00 06/27/22 12:00 06/27/22 12:00 Laboratory Results - last 24 hr 06/27/22 06:18: WBC 6.2 D, RBC 4.12 L, Hgb 11.7 L D, Hct 34.3 L, MCV 83.3, MCH 28.7, MCHC 34.5, RDW 13.7, Plt Count 363, MPV 7.9, Neut % (Auto) 76.9, Lymph % (Auto) 10.7, [place] % (Auto) 8.5, Eo
[2022-06-28 03:47] VITALS: BP 129/52; PULSE 60; RESP 18; TEMP 36.7; O2SAT 97
[2022-06-28 04:00] VITALS: BMI 31.6
--- NOTE | 2022-06-28 06:33 | PC.NURSE ---
NO ACUTE CHANGES SINCE PREVIOUS ASSESSMENT. PT SLEPT WELL THIS SHIFT. LUNG SOUNDS ARE CLEAR. NO C/O SOB, CP, ABD PAIN, N/V/D THIS SHIFT. AMBULATING IN ROOM INDEPENDENTLY. VSS. CALL [facility] WITHIN REACH.
[2022-06-28 06:55] LABS: Basophils % 0.5 % (0.1-2.0); Eosinophils # 0.2 K/mm3 (0.0-0.4); Eosinophils % 2.8 % (0.1-12.0); Hematocrit 36.7 % (37.0-47.0); Hemoglobin 12.3 g/dL (12.2-16.2); Lymphocytes # 0.8 K/mm3 (0.7-4.5); Lymphocytes % 12.5 % (10-50); Mean Corpuscular HGB Conc 33.4 g/dL (31.8-35.4); Mean Corpuscular Hemoglobin 28.4 pg (27.0-31.2); Mean Corpuscular Volume 85.1 fl (81-99); Monocytes # 0.5 K/mm3 (0.1-1.0); Monocytes % 8.2 % (1.7-9.3); Platelet Count 353 K/mm3 (142-424); Red Blood Count 4.31 M/mm3 (4.20-5.40); Red Cell Distribution Width 13.7 % (11.5-17.5); White Blood Count 6.5 K/mm3 (4.8-10.8)
[2022-06-28 07:16] LABS: Chloride 105 mmol/L (98-107)
[2022-06-28 07:17] LABS: Sodium 138 mmol/L (136-145)
[2022-06-28 07:19] LABS: Alanine Aminotransferase 58 U/L (12-78); Aspartate Amino Transferase 35 U/L (14-36); Blood Urea Nitrogen 17 mg/dl (7-17); Creatinine Clearance Estimated 65 mL/min (50-200); Estimated Glomerular Filt Rate 98 ml/min (>60); GFR (African American) 119 ML/MIN (>60)
[2022-06-28 07:20] LABS: Albumin Level 3.3 g/dl (3.5-5.0); Albumin/Globulin Ratio 1.7 (1.1-1.8); Alkaline Phosphatase 190 U/L (38-126); Bilirubin,Total 0.4 mg/dl (0.2-1.3); Calcium 8.6 mg/dl (8.4-10.2); Carbon Dioxide 24 mmol/L (22.0-30.0); Glucose 90 mg/dl (74-100); Total Protein,Serum 5.3 g/dl (6.3-8.2)
--- NOTE | 2022-06-28 07:44 | EXP.DC.SUM ---
General Admission date:: 06/26/22 Discharge date: 06/28/22 HPI HPI HPI: Patient is a 72-year-old female with apparent history of lymphoma and is followed at [facility]. She had presented to the emergency department yesterday on 06/26/2022 with a 1 week history of pain in her lower substernal area and right thoracoabdominal area radiating into her back and scapula. These have been fluctuating episodes without fevers. Patient apparently initially thought her symptoms were due to exercise but after continued persistence she presented for evaluation at the emergency department. Evaluation in the emergency department in the afternoon of 06/26/2022 revealed a normal white blood cell count. She had elevation of AST to 75 and ALT to 105 with alkaline phosphatase of 227. She underwent a CT scan of the abdomen and pelvis which revealed findings concerning for cholecystitis (gallstones, mild gallbladder wall thickening, pericholecystic edema). Most notable, however, she had indeterminate multi-lobulated liver lesion in segment 2 measuring up to 6.5 cm. There was soft tissue thickening along the right pleural surface and ill-defined soft tissue in the presacral space. The combination of the liver mass and soft tissue thickening raised concern for possible malignancy. At this time surgery was contacted by the ER physician. Her CT was reviewed. Given the potential for intra-abdominal malignancy it was felt that she would best be served at higher level care facility. Apparently lack of bed availability has limited this and she had been admitted to this facility awaiting a bed. [facility] had been contacted and had considered possible transport to their facility for ERCP with return post procedure to this facility. Patient did have an ultrasound of the abdomen done. Surgical consultation was obtained this afternoon due to the patient remaining an inpatient at this facility. Patient does have positivity for SARS-CoV-2 but is asymptomatic. Hospital Course Hospital Course Hospital Course: 72-year-old female with prior history of malignancy (Hodgkin's versus non-Hodgkin's, not currently on chemo or radiation) presenting with abdominal pain and very mild cholestatic liver injury found to have concern for cholecystitis and a large 6.5 cm hepatic mass of unidentified etiology.? Patient's symptoms resolved by morning.? Surgery consulted, appreciate their recommendations.? Problems addressed as follows: Cholestatic liver injury Liver mass Concern for cholecystitis -Surgery consulted, appreciate their recommendation. Low concern for infection and gallbladder. Patient's liver enzymes improved with monitoring. Pain resolved by morning after admission. Per surgery's recs: Patient's baseline imaging and details of her apparent lymphoma are unknown at this facility.? It is very likely that her symptomatology and elevation of liver function tests are due to the liver mass.? Findings on CT scan concerning her gallbladder may be potentially chronic and secondary to the liver lesion.?No findings clinically or on physical examination consistent with acute cholecystitis.?No surgical plan for cholecystectomy at this facility.? Patient may have some degree of chronic gallbladder disease but no evidence of significant acute cholecystitis at this time. Surgery recommends liver mass be addressed by patient's regular oncology team at [facility]. AST and ALT normalized by day of discharge. Alkaline phosphatase significantly improved. Tolerating regular diet. Plan to have patient follow-up in the near future as an outpatient with her oncology team for further evaluation of liver mass. COVID - Asymptomatic, uncertain how long she has been positive. Monitor during admission. Had no symptoms and no oxygen requirement. No indication for treatment. Lymphoma -Extensive treatment at [facility].? Patient has stage IV follicular lymphoma per discussion wi
[2022-06-28 08:00] VITALS: BP 157/65; PULSE 65; RESP 18; TEMP 36.9; O2SAT 99
--- NOTE | 2022-06-28 11:15 | HMH.PHAINT1 ---
Pharmacy Intervention Comments: Patient was counseled on all discharge medications prior to discharge. Instructed to take two more doses of NEW Augmentin on the day. Advised to take with food and finish full course of antibiotic. Instructed to continue taking home medications. Patient informed this student that she had stopped taking her medications for a few days prior to hospital admission d/t not feeling well. This student advised patient to resume her home medications and assured patient that there were no interactions between the medications when patient expressed concern. Apparent discrepancy between instructions on discharge list and how patient actually takes primidone. Patient said she would check with PCP. Patient had no further questions and verbalized understanding of information provided.
== END 2022-06-28 12:15 | disposition home or self-care (01) ==
LOC: ER 11:56 → 2ND 18:10
PROVIDERS: Student in an Organized Health Care Education/Training Program; Admitting Provider Emergency Medicine; Emergency Provider Emergency Medicine; PCP Internal Medicine Adolescent Medicine; Visit Provider Internal Medicine Adolescent Medicine
DX: U07.1 COVID-19 (principal); I10 Essential (primary) hypertension; C82.80 Other types of follicular lymphoma, unspecified site; R16.0 Hepatomegaly, not elsewhere classified; K75.89 Other specified inflammatory liver diseases; Z79.899 Other long term (current) drug therapy; K81.0 Acute cholecystitis
CPT/HCPCS: G0378; 36415; 71045; 74177; 76705; 80053; 83690; 83735; 84100; 84484; 85025; 85610; 87040; 87077; 87186; 93005; 99285; C9803; J2405; J2543; Q9967; U0003; U0005

== ENCOUNTER → 2022-10-23 15:57 | Outpatient (CLI) | payer MEDICARE, SELFPAY ==
[2022-10-23 16:36] LABS: Basophils % 0.2 % (0.1-2.0); Eosinophils # 0.1 K/mm3 (0.0-0.4); Eosinophils % 1.5 % (0.1-12.0); Hemoglobin 13.6 g/dL (12.2-16.2); Lymphocytes # 1.5 K/mm3 (0.7-4.5); Lymphocytes % 23.8 % (10-50); Mean Corpuscular HGB Conc 33.1 g/dL (31.8-35.4); Mean Corpuscular Volume 84.5 fl (81-99); Mean Platelet Volume 7.5 fl (7.4-10.4); Monocytes # 0.4 K/mm3 (0.1-1.0); Monocytes % 5.7 % (1.7-9.3); Neutrophils # 4.3 K/mm3 (1.8-7.8); Neutrophils % 68.9 % (37.0-80.0); Platelet Count 302 K/mm3 (142-424); Red Blood Count 4.86 M/mm3 (4.20-5.40); Red Cell Distribution Width 14.4 % (11.5-17.5); White Blood Count 6.2 K/mm3 (4.8-10.8)
[2022-10-23 17:09] LABS: Alanine Aminotransferase 98 U/L (12-78); Albumin Level 3.9 g/dl (3.5-5.0); Albumin/Globulin Ratio 2.1 (1.1-1.8); Alkaline Phosphatase 109 U/L (38-126); Anion Gap 12.7 mEq/L (5-15); Aspartate Amino Transferase 91 U/L (14-36); Bilirubin,Total 0.4 mg/dl (0.2-1.3); Blood Urea Nitrogen 13 mg/dl (7-17); Calcium 8.7 mg/dl (8.4-10.2); Carbon Dioxide 24 mmol/L (22.0-30.0); Chloride 105 mmol/L (98-107); Estimated Glomerular Filt Rate 98 ml/min (>60); GFR (African American) 119 ML/MIN (>60); Globulin 1.9 g/dL (1.3-3.2); Glucose 79 mg/dl (74-100); Potassium 3.7 mmoL/L (3.5-5.1); Sodium 138 mmol/L (136-145); Total Protein,Serum 5.8 g/dl (6.3-8.2)
[2022-10-23 17:59] LABS: Vitamin B12 380 pg/mL (239-931)
== END ==
PROVIDERS: PCP Internal Medicine Adolescent Medicine; Visit Provider Internal Medicine Adolescent Medicine
DX: R19.7 Diarrhea, unspecified (principal); K92.1 Melena; R53.81 Other malaise; R53.83 Other fatigue
CPT/HCPCS: 36415; 80053; 82607; 85025

== ENCOUNTER → 2022-11-02 14:09 | Outpatient (CLI) | payer MEDICARE, SELFPAY ==
[2022-11-02 14:16] LABS: Astrovirus Not Detected (NotDetected); Campylobacter Not Detected (NotDetected); Cryptosporidium Not Detected (NotDetected); Cyclospora Cayetanesis Not Detected (NotDetected); Entamoeba histolytica Not Detected (NotDetected); Enteroaggregative E coli Not Detected (NotDetected); Enteropathogenic E coli Not Detected (NotDetected); Enterotoxigenic E coli Not Detected (NotDetected); Giardia lamblia Not Detected (NotDetected); Norovirus Not Detected (NotDetected); Plesimonas Shigalloides, PCR Not Detected (NotDetected); Rotavirus A Not Detected (NotDetected); Salmonella, PCR Not Detected (NotDetected); Sapovirus Not Detected (NotDetected); Shiga-like toxin E coli Not Detected (NotDetected); Shigella Enterovasive E coli Not Detected (NotDetected); Vibrio Cholerae Not Detected (NotDetected); Vibrio, PCR Not Detected (NotDetected); Yersinia Entercolitica, PCR Not Detected (NotDetected)
[2022-11-03 00:50] LABS: Adenovirus F 40/41, stool Detected (NotDetected); Clostridium Difficile A/B, PCR Detected (NotDetected)
[2022-11-05 15:07] LABS: H. pylori Stool Ag, EIA Negative (Negative)
== END ==
PROVIDERS: PCP Internal Medicine Adolescent Medicine; Visit Provider Internal Medicine Adolescent Medicine
DX: R19.7 Diarrhea, unspecified (principal); R10.9 Unspecified abdominal pain; A04.72 Enterocolitis due to Clostridium difficile, not specified as recurrent; B97.0 Adenovirus as the cause of diseases classified elsewhere
CPT/HCPCS: 87338; 87506

== ENCOUNTER → 2022-12-05 09:13 | Outpatient (CLI) | payer MEDICARE, SELFPAY ==
--- NOTE | 2022-12-05 09:19 | XR_ITS ---
FINAL REPORT CLINICAL HISTORY: post menopausal FINDINGS: Using L1-4, the bone mineral density of the spine is 0.948 g/cm2, corresponding to T-score of -0.9. Using the left hip, the bone mineral density of the femoral neck is 0.660 g/cm2, corresponding to a T-score of -1.7. Using the right hip: The bone mineral density of the femoral neck is 0.653 g/cm2, corresponding to a T-score of -1.8. FRAX 10 year fracture risk is 10% for a hip fracture and 1.9% for a major osteoporotic fracture. IMPRESSION: Normal bone mineral density of the lumbar spine. Osteopenia of the bilateral hips. NOTE: T-score: Standard deviation compared with peak bone mass of young adult mean. *Following the recommendations of the International Society of Bone densitometry, classification of hip BMD is based on the lower of two T-scores; total hip or femoral neck. Reviewed, Interpreted and Dictated by Edgar Salcedo MD Transcribed by Louise Hayden Authenticated and . [facility]
--- NOTE | 2022-12-05 09:19 | US_ITS ---
FINAL REPORT TECHNIQUE: Multiple transverse and longitudinal images CLINICAL HISTORY: ABNORMAL AFTS FINDINGS: The liver is normal in size. No obvious cirrhosis is identified. There is a ill-defined hypoechoic mass in the posterior left lobe of the liver, measuring nearly 5 cm in size. No evidence of biliary obstruction is visualized. Cholelithiasis is present, with borderline gallbladder wall thickening. There is an 11 mm right renal hypoechoic focus present and compatible with a cyst. The pancreas is not well visualized. IMPRESSION: Ill-defined hypoechoic mass in the posterior aspect of the left lobe of the liver. Would recommend further examination with either MR or CT using hemangioma protocol. Cholelithiasis No evidence of biliary obstruction Reviewed, Interpreted and Dictated by Edgar Salcedo MD Transcribed by Gaye Hsu Authenticated and [facility]
== END ==
PROVIDERS: PCP Internal Medicine Adolescent Medicine; Visit Provider Internal Medicine Adolescent Medicine
DX: M85.89 Other specified disorders of bone density and structure, multiple sites (principal); R79.89 Other specified abnormal findings of blood chemistry; R94.5 Abnormal results of liver function studies
CPT/HCPCS: 76705; 77080

== ENCOUNTER → 2022-12-14 08:47 | Outpatient (CLI) | payer MEDICARE, SELFPAY ==
--- NOTE | 2022-12-14 08:55 | MR_ITS ---
FINAL REPORT CLINICAL HISTORY: ABNORMAL ULTRASOUND -mass posterior left lobe of the liver. COMPARISON: Abdominal ultrasound 12/05/2022 FINDINGS: Multiplanar MR imaging of the abdomen was performed without contrast. There is a small right pleural effusion. There are multiple masses throughout the liver, the largest in the lateral segment in the left hepatic lobe measures 5.9 cm. Mass in the medial segment of the left hepatic lobe measures 1.9 cm. Other hepatic masses measure less than 1 cm. These cannot be accurately characterized without contrast but most likely represent multiple hemangiomas and/or cysts. There is no evidence of biliary ductal dilatation. There are multiple gallstones with gallbladder wall thickening. No other mass or adenopathy is identified. IMPRESSION: Multiple hepatic masses most likely represent hemangiomas and/or cysts. If indicated, follow-up MRI may be helpful to evaluate for stability Reviewed, Interpreted and Dictated by Ranjit Nettles III, MD Transcribed by Gill Nagel Authenticated and [facility]
== END ==
PROVIDERS: PCP Internal Medicine Adolescent Medicine; Visit Provider Internal Medicine Adolescent Medicine
DX: R93.89 Abnormal findings on diagnostic imaging of other specified body structures (principal)
CPT/HCPCS: 74181

== ENCOUNTER 2023-09-06 20:57 | Emergency (ER) | payer MEDICARE, SELFPAY ==
[2023-09-06 20:58] VITALS: BP 166/88; PULSE 97; RESP 17; TEMP 37.6; O2SAT 95; BMI 30.2
--- NOTE | 2023-09-06 21:16 | ED_ITS ---
Discharge Plan Disposition Patient Disposition: Home, Self-Care Condition: Good Prescriptions Prescriptions: New oseltamivir [Tamiflu] 75 mg capsule 75 mg PO BID 5 Days Qty: 10 0RF ondansetron 4 mg tablet,disintegrating 4 mg PO Q6H PRN (Reason: nausea and vomiting) Qty: 10 0RF ondansetron 4 mg tablet,disintegrating 4 mg PO Q6H PRN (Reason: nausea and vomiting) Qty: 10 0RF No Action primidone 50 mg Tablet 50 mg PO HS celecoxib 200 mg capsule 200 mg PO BID ergocalciferol (vitamin D2) 1,250 mcg (50,000 unit) capsule 1,250 mcg PO WEEKLY amoxicillin-pot clavulanate 500-125 mg Tablet 1 ea PO TID 5 Days Qty: 15 0RF Referrals Follow up/Referrals: Earle Rincon MD [Primary Care Provider] - See instructions Activity Restrictions/Add. Instructions Additional Instructions/Restrictions: Please take Tylenol Motrin as needed for your constitutional symptoms of bodyaches fever. I have called in Zofran and Tamiflu to your pharmacy. Please follow-up with your PCP for any change in your symptoms or condition. Or return to the ER for same. Clinical Impressions Clinical Impression: Flu Instructions Patient Instructions: DI for Diarrhea and Traveler's Diarrhea -- Adult, DI for Diarrhea and Traveler's Diarrhea -- Child, DI for Nausea -- Adult, DI for Nausea -- Child Discharge ED Provider: Marty Otero General Adult HPI <EMILY Higgins - Last Filed: 09/06/23 22:21> General Chief complaint: Nausea/Vomiting/Diarrhea Stated complaint: fever, vomiting Time Seen by Provider: 09/06/23 21:06 Mode of Arrival: Wheelchair Source of Information: Patient and Spouse Limitations: No Limitations Description of Symptoms (Recalled from ER Triage Doc. by RN): Patient reports general unwellness since ys morning including nausea and vomiting, diarreah,fever, bodyaches. Patient last took tylenol at 4pm today. Family reports fever was as high as 102.7 at home. Last episode of emesis and diarrhea was at 3am. History of Present Illness HPI narrative: Patient presents with a 24 history of nausea vomiting and diarrhea. Patient states symptoms began last evening with vomiting and is now progressed to having loose stools x 2 today. Patient reports subjective fever at home. She denies chest pain shortness of breath abdominal pain chills hemoptysis hematochezia melena hematemesis dysuria. Related Data Home Medications Medication Instructions Recorded Confirmed celecoxib 200 mg capsule 200 mg PO BID Arthritis 06/26/22 06/27/22 ergocalciferol (vitamin D2) 1,250 1,250 mcg PO WEEKLY Supplement 06/26/22 06/26/22 mcg (50,000 unit) capsule primidone 50 mg tablet 50 mg PO HS Tremors 06/26/22 06/26/22 Previous Rx's Medication Instructions Recorded amoxicillin 500 mg-potassium 1 ea PO TID 5 days #15 tabs 06/28/22 clavulanate 125 mg tablet ondansetron 4 mg disintegrating 4 mg PO Q6H PRN nausea and 09/06/23 tablet vomiting #10 tabs ondansetron 4 mg disintegrating 4 mg PO Q6H PRN nausea and 09/06/23 tablet vomiting #10 tabs oseltamivir 75 mg capsule (Tamiflu) 75 mg PO BID 5 days #10 caps 09/06/23 Allergies Allergy/AdvReac Type Severity Reaction Status Date / Time No Known Allergies Allergy Verified 06/26/22 18:31 PFSH <EMILY Higgins - Last Filed: 09/06/23 22:21> PFS Disclaimer: The information contained in this section may have been updated after the patient was seen, as this information can be updated by other users. Medical History (Updated 09/06/23 @ 22:27 by Gill Boyle RN) History of COVID-19 Menopause Hypertension History of anemia Non-Hodgkin lymphoma Surgical History No significant past surgical history Family History Other No significant family history Social History Smoking Status: Never smoker alcohol intake: never substance use type: denies use current occupational status: retired Travel in the last 8 weeks: None <EMILY Higgins - Last Filed: 09/06/23 22:21> ROS Obtained: Yes Systems reviewed as appropriate & no additional complaints except as documented Physical Exam <EMILY Higgins - Last Filed: 09/06/23 22:21> General General appearance: alert and in no apparent distress Head Head exam: atraumatic and normal inspection Eye Eye exam: Present normal appearance, PERRL and EOMI ENT ENT exam: Present normal exam, normal oropharynx, mucous membranes moist and other (Flushed facies) Neck Neck exam: Present normal inspection and full ROM; Absent lymphadenopathy Chest Chest inspection: Present normal inspection and symmetric chest wall rise Respiratory Respiratory exam: Present normal lung sounds bilaterally; Absent respiratory distress or accessory muscle use Cardiovascular Cardiovascular exam: Present normal rhythm, tachycardia, normal heart sounds, +S1 and +S2 Abdominal Exam Abdominal exam: Present soft (Obese) and hyperactive bowel sounds; Absent tenderness, guarding or rebound Extremities Exam Extremities exam: Present normal inspection and full ROM Neurological Exam Neurological exam: Present alert and oriented X3 Psychiatric Psychiatric exam: Present normal affect and normal mood Skin Skin exam: Present warm, dry and normal color Medical Decision Making <EMILY Higgins - Last Filed: 09/06/23 22:21> Medical Records Medical records reviewed: Yes I reviewed the patient's medical records. Mundo Inquiry Pt receiving controlled substance: No Vital Signs: 09/06/23 20:58 09/06/23 22:23 Temperature 99.7 F H 99 F Temperature Source Oral Oral Pulse Rate 89 Pulse Rate [Left Radial] 97 H Respiratory Rate 17 16 Blood Pressure 130/71 Blood Pressure [Left Radial Artery] 166/88 H Blood Pressure Mean [Left Radial Artery] 114 Blood Pressure Source Automatic Cuff Blood Pressure Source [Left Radial Artery] Automatic Cuff Blood Pressure Position Sitting Blood Pressure Position [Left Radial Artery] Supine 02 Sat by Pulse Oximetry 95 Oxygen Delivery Method Room Air Room Air Lab Data Lab results reviewed: Yes I reviewed the patient's lab results. Lab Results 09/06/23 21:10: WBC 5.9, RBC 4.74, Hgb 13.4, Hct 41.6, MCV 87.8, MCH 28.3, MCHC 32.3, RDW 14.8, Plt Count 223, MPV 7.9, Neut % (Auto) 78.9, Lymph % (Auto) 11.3, [place] % (Auto) 7.7, Eos % (Auto) 1.3, Baso % (Auto) 0.7, Neut # (Auto) 4.7, Lymph # (Auto) 0.7, [place] # (Auto) 0.5, Eos # (Auto) 0.1, Baso # (Auto) 0.0, D-Dimer 0.38, Sodium 133 L, Potassium 3.7, Chloride 105, Carbon Dioxide 22, Anion Gap 9.7, BUN 14, Creatinine 0.70, Estimated Creat Clear 57, Estimated GFR 82, Est GFR ( Amer) 99, Glucose 96, Lactate 0.8, Calcium 8.5, Magnesium 1.9, Total Bilirubin 0.6, AST 44 H, ALT 30, Alkaline Phosphatase 105, Troponin I < 0.01, Total Protein 6.3, Albumin 4.2, Globulin 2.1, Albumin/Globulin Ratio 2.0 H , SARS-CoV-2 (PCR) Not detected, Influenza A Untype (PCR) Detected A, Influenza Type B (PCR) Not detected 09/06/23 21:10 09/06/23 21:10 Orders (Tests/Meds): ED MEDICATIONS Discontinued Medications Generic Name Dose Route Start Last Admin Trade Name Freq PRN Reason Stop Dose Admin Acetaminophen 1,000 mg 09/06/23 21:16 09/06/23 21:25 Acetaminophen 1,000mg/100ml Vial IV 09/06/23 21:17 1,000 mg ONCE ONE Administration Lactated Ringer's 1,000 mls @ 999 mls/hr 09/06/23 21:16 09/06/23 21:26 Lactated Ringer's 1000 Ml Bag IV 09/06/23 22:16 999 mls/hr .Q1H1M ONE Administration Ketorolac Tromethamine 15 mg 09/06/23 21:16 09/06/23 21:25 Ketorolac 30mg/Ml Vial IV 09/06/23 21:17 15 mg ONCE ONE Administration Ondansetron HCl 4 mg 09/06/23 21:16 09/06/23 21:25 Ondansetron 4mg Odt SL 09/06/23 21:17 4 mg ONCE ONE Administration ORDERS Category Date Time Status CBC w/Auto Diff [Complete Blood Count Auto Diff] Stat Lab 09/06/23 21:10 Completed CMP [Comprehensive Metabolic Panel] Stat Lab 09/06/23 21:10 Completed D-Dimer Stat Lab 09/06/23 21:10 Completed Lactic Acid Stat Lab 09/06/23 21:10 Completed Magnesium Stat Lab 09/06/23 21:10 Completed Rapid PCR Covid and Flu A/B Stat Lab 09/06/23 21:10 Completed Trop I [Troponin I] Stat Lab 09/06/23 21:10 Completed Medical Decision Narrative: In summary patient is a 73-year-old female who presents to the emergency department for evaluation of fever vomiting and diarrhea. Patient is normotensive slightly tachycardic satting at 95% on room air upon arrival, with a temperature of 99.7. Physical exam shows hyperactive bowel sounds but otherwise is unremarkable nonfocal including normal breath sounds no pain with palpation of the abdomen normal heart sounds.. Differential diagnosis includes ACS versus gastroenteritis versus other viral or bacterial infection etc. Initial workup will be conducted with hematologic labs COVID and flu swabs EKG. Initial interventions include Tylenol Toradol antiemetics. Initial workup reviewed by me shows nonactionable hematologic labs including normal white count with no shift negative troponin negative dimer. Her respiratory swabs are positive for influenza A.. Upon repeat evaluation had acceptable resolution of her constitutional symptoms and is now appropriate for discharge and tolerating p.o. prior to discharge.. Given this patient will be discharged home with a prescription for Tamiflu and Zofran. Patient follow-up with PCP or return to ER for any worsening or change in her symptoms. <Marty Otero MD - Last Filed: 09/06/23 22:43> Vital Signs: 09/06/23 20:58 09/06/23 22:23 Temperature 99.7 F H 99 F Temperature Source Oral Oral Pulse Rate 89 Pulse Rate [Left Radial] 97 H Respiratory Rate 17 16 Blood Pressure 130/71 Blood Pressure [Left Radial Artery] 166/88 H Blood Pressure Mean [Left Radial Artery] 114 Blood Pressure Source Automatic Cuff Blood Pressure Source [Left Radial Artery] Automatic Cuff Blood Pressure Position Sitting Blood Pressure Position [Left Radial Artery] Supine 02 Sat by Pulse Oximetry 95 Oxygen Delivery Method Room Air Room Air Lab Data Lab Results 09/06/23 21:10: WBC 5.9, RBC 4.74, Hgb 13.4, Hct 41.6, MCV 87.8, MCH 28.3, MCHC 32.3, RDW 14.8, Plt Count 223, MPV 7.9, Neut % (Auto) 78.9, Lymph % (Auto) 11.3, [place] % (Auto) 7.7, Eos % (Auto) 1.3, Baso % (Auto) 0.7, Neut # (Auto) 4.7, Lymph # (Auto) 0.7, [place] # (Auto) 0.5, Eos # (Auto) 0.1, Baso # (Auto) 0.0, D-Dimer 0.38, Sodium 133 L, Potassium 3.7, Chloride 105, Carbon Dioxide 22, Anion Gap 9.7, BUN 14, Creatinine 0.70, Estimated Creat Clear 57, Estimated GFR 82, Est GFR ( Amer) 99, Glucose 96, Lactate 0.8, Calcium 8.5, Magnesium 1.9, Total Bilirubin 0.6, AST 44 H, ALT 30, Alkaline Phosphatase 105, Troponin I < 0.01, Total Protein 6.3, Albumin 4.2, Globulin 2.1, Albumin/Globulin Ratio 2.0 H , SARS-CoV-2 (PCR) Not detected, Influenza A Untype (PCR) Detected A, Influenza Type B (PCR) Not detected Orders (Tests/Meds): ED MEDICATIONS Discontinued Medications Generic Name Dose Route Start Last Admin Trade Name Freq PRN Reason Stop Dose Admin Acetaminophen 1,000 mg 09/06/23 21:16 09/06/23 21:25 Acetaminophen 1,000mg/100ml Vial IV 09/06/23 21:17 1,000 mg ONCE ONE Administration Lactated Ringer's 1,000 mls @ 999 mls/hr 09/06/23 21:16 09/06/23 21:26 Lactated Ringer's 1000 Ml Bag IV 09/06/23 22:16 999 mls/hr .Q1H1M ONE Administration Ketorolac Tromethamine 15 mg 09/06/23 21:16 09/06/23 21:25 Ketorolac 30mg/Ml Vial IV 09/06/23 21:17 15 mg ONCE ONE Administration Ondansetron HCl 4 mg 09/06/23 21:16 09/06/23 21:25 Ondansetron 4mg Odt SL 09/06/23 21:17 4 mg ONCE ONE Administration ORDERS Category Date Time Status CBC w/Auto Diff [Complete Blood Count Auto Diff] Stat Lab 09/06/23 21:10 Completed CMP [Comprehensive Metabolic Panel] Stat Lab 09/06/23 21:10 Completed D-Dimer Stat Lab 09/06/23 21:10 Completed Lactic Acid Stat Lab 09/06/23 21:10 Completed Magnesium Stat Lab 09/06/23 21:10 Completed Rapid PCR Covid and Flu A/B Stat Lab 09/06/23 21:10 Completed Trop I [Troponin I] Stat Lab 09/06/23 21:10 Completed Medical Decision Narrative: In summary patient is a 73-year-old female who presents to the emergency department for evaluation of fever vomiting and diarrhea. Patient is normotensive slightly tachycardic satting at 95% on room air upon arrival, with a temperature of 99.7. Physical exam shows hyperactive bowel sounds but otherwise is unremarkable nonfocal including normal breath sounds no pain with palpation of the abdomen normal heart sounds.. Differential diagnosis includes ACS versus gastroenteritis versus other viral or bacterial infection etc. Initial workup will be conducted with hematologic labs COVID and flu swabs EKG. Initial interventions include Tylenol Toradol antiemetics. Initial workup reviewed by me shows nonactionable hematologic labs including normal white count with no shift negative troponin negative dimer. Her respiratory swabs are positive for influenza A.. Upon repeat evaluation had acceptable resolution of her constitutional symptoms and is now appropriate for discharge and tolerating p.o. prior to discharge.. Given this patient will be discharged home with a prescription for Tamiflu and Zofran. Patient follow-up with PCP or return to ER for any worsening or change in her symptoms. I was consulted by the CAROL, and we discussed the complexity of the problems being addressed. I approved the treatment and management plan for this patient?s care in the Emergency Department, thus performing a substantive portion of the medical decision making. Marty Otero MD Critical Care <EMILY Higgins - Last Filed: 09/06/23 22:21> Critical Care Time Critical Care Time: No
[2023-09-06 21:24] LABS: Basophils % 0.7 % (0.1-2.0); Coronavirus 19, PCR Not Detected (NotDetected); Eosinophils # 0.1 K/mm3 (0.0-0.4); Eosinophils % 1.3 % (0.1-12.0); Hematocrit 41.6 % (37.0-47.0); Hemoglobin 13.4 g/dL (12.2-16.2); Influenza B, PCR Not Detected (NotDetected); Lymphocytes # 0.7 K/mm3 (0.7-4.5); Lymphocytes % 11.3 % (10-50); Mean Corpuscular HGB Conc 32.3 g/dL (31.8-35.4); Mean Corpuscular Hemoglobin 28.3 pg (27.0-31.2); Mean Corpuscular Volume 87.8 fl (81-99); Mean Platelet Volume 7.9 fl (7.4-10.4); Monocytes # 0.5 K/mm3 (0.1-1.0); Monocytes % 7.7 % (1.7-9.3); Neutrophils # 4.7 K/mm3 (1.8-7.8); Neutrophils % 78.9 % (37.0-80.0); Platelet Count 223 K/mm3 (142-424); Red Blood Count 4.74 M/mm3 (4.20-5.40); Red Cell Distribution Width 14.8 % (11.5-17.5); White Blood Count 5.9 K/mm3 (4.8-10.8)
[2023-09-06] MEDS: ACETAMINOPHEN 1,000MG/100ML VIAL 1000 MG IV (21:25)
[2023-09-06] MEDS: KETOROLAC 30MG/ML VIAL 15 MG IV (21:25)
[2023-09-06] MEDS: ONDANSETRON 4MG ODT 4 MG SL (21:25)
[2023-09-06] MEDS: LACTATED RINGERS 1000ML 1,000 ML 999 ML IV (21:26)
[2023-09-06 21:31] LABS: Alanine Aminotransferase 30 U/L (12-78); Albumin Level 4.2 g/dl (3.5-5.0); Alkaline Phosphatase 105 U/L (38-126); Anion Gap 9.7 mEq/L (5-15); Aspartate Amino Transferase 44 U/L (14-36); Bilirubin,Total 0.6 mg/dl (0.2-1.3); Blood Urea Nitrogen 14 mg/dl (7-17); Calcium 8.5 mg/dl (8.4-10.2); Carbon Dioxide 22 mmol/L (22.0-30.0); Chloride 105 mmol/L (98-107); Creatinine Clearance Estimated 57 mL/min (50-200); Estimated Glomerular Filt Rate 82 ml/min (>60); GFR (African American) 99 ML/MIN (>60); Globulin 2.1 g/dL (1.3-3.2); Glucose 96 mg/dl (74-100); Lactic Acid 0.8 mmol/L (0.7-2.1); Potassium 3.7 mmoL/L (3.5-5.1); Sodium 133 mmol/L (136-145); Total Protein,Serum 6.3 g/dl (6.3-8.2)
[2023-09-06 21:32] LABS: Magnesium 1.9 mg/dl (1.6-2.3)
[2023-09-06 21:37] LABS: D-Dimer 0.38 ug/mL (0.0-0.5)
[2023-09-06 21:51] LABS: Troponin I < 0.01 ng/ml (0.00-0.034)
[2023-09-06 22:04] LABS: Influenza A, PCR Detected (NotDetected)
[2023-09-06 22:23] VITALS: BP 130/71; PULSE 89; RESP 16; TEMP 37.2; O2SAT 94
== END 2023-09-06 22:25 | disposition home or self-care (01) ==
PROVIDERS: Physician Assistant; Emergency Provider Emergency Medicine; PCP Internal Medicine Adolescent Medicine
DX: J10.2 Influenza due to other identified influenza virus with gastrointestinal manifestations (principal); R50.9 Fever, unspecified; R11.2 Nausea with vomiting, unspecified; R19.7 Diarrhea, unspecified; I10 Essential (primary) hypertension
CPT/HCPCS: 80053; 83605; 83735; 84484; 85025; 85378; 87636; 96361; 96374; 96375; 99284; J0131

== ENCOUNTER 2023-10-21 12:00 | Emergency (ER) | payer MEDICARE, SELFPAY ==
[2023-10-21 12:20] VITALS: BP 123/47; PULSE 91; RESP 18; TEMP 36.8; O2SAT 98; BMI 30.2
--- NOTE | 2023-10-21 12:35 | ED_ITS ---
Discharge Plan Disposition Patient Disposition: Home, Self-Care Condition: Good Prescriptions Prescriptions: New diphenhydramine HCl 25 mg capsule 25 mg PO Q6HP PRN (Reason: Itching) Qty: 30 0RF methylprednisolone 4 mg Tablets,Dose Pack 4 mg PO DIRECTED 6 Days Qty: 21 0RF Rx Instructions: Take 1 pack as directed for 6 days triamcinolone acetonide 0.1 % cream 1 applic topical BID PRN (Reason: itching) Qty: 30 0RF No Action primidone 50 mg Tablet 50 mg PO HS celecoxib 200 mg capsule 200 mg PO BID ergocalciferol (vitamin D2) 1,250 mcg (50,000 unit) capsule 1,250 mcg PO WEEKLY carbidopa-levodopa 10-100 mg tablet 1 tab PO TID Patient Comments: TAKE 1 TABLET BY MOUTH THREE TIMES DAILY ergocalciferol (vitamin D2) 1,250 mcg (50,000 unit) capsule See Rx Instructions .ROUTE .COMPLEX Patient Comments: TAKE 1 CAPSULE BY MOUTH TWICE A WEEK Rx Instructions: TAKE 1 CAPSULE BY MOUTH TWICE A WEEK Referrals Follow up/Referrals: Earle Rincon MD [Primary Care Provider] - See instructions Activity Restrictions/Add. Instructions Additional Instructions/Restrictions: Try to identify and avoid contact with the offending substance. Don't start the oral steroids until tomorrow. The diphenhydramine (benedryl) will make you drowsy, so don't drive or operate heavy machinery after taking it. Don't put the topical steroids (triamcinolone) on your face or your groin. Follow up with your regular doctor. GO TO THE ER FOR ANY WORSENING SYMPTOMS OR CONCERNS Clinical Impressions Clinical Impression: Contact dermatitis, Allergic reaction Instructions Patient Instructions: DI for General Allergic Reactions, Triamcinolone Topical, Diphenhydramine, Methylprednisolone, Dexamethasone Injection Discharge ED Provider: Neil Cedeno [facility] General Stated complaint: hives all over body Time Seen by Provider: 10/21/23 12:34 History of Present Illness Provider Complaint: She states that for the past 1 day she has had a itchy rash on her abdomen, legs and arms. She denies any known exposure to any allergens. She has nausea also. She denies any fever/chills/body aches. Related Data Home Medications Medication Instructions Recorded Confirmed celecoxib 200 mg capsule 200 mg PO BID Arthritis 06/26/22 06/27/22 ergocalciferol (vitamin D2) 1,250 1,250 mcg PO WEEKLY Supplement 06/26/22 06/26/22 mcg (50,000 unit) capsule primidone 50 mg tablet 50 mg PO HS Tremors 06/26/22 10/21/23 carbidopa 10 mg-levodopa 100 mg 1 tab PO TID 10/21/23 10/21/23 tablet ergocalciferol (vitamin D2) 1,250 See Rx Instructions .Route .COMPLEX 10/21/23 10/21/23 mcg (50,000 unit) capsule Previous Rx's Medication Instructions Recorded diphenhydramine HCl 25 mg capsule 25 mg PO Q6HP PRN Itching #30 caps 10/21/23 methylprednisolone 4 mg tablets in 4 mg PO DIRECTED 6 days #21 tabs 10/21/23 a dose pack triamcinolone acetonide 0.1 % 1 applic topical BID PRN itching 10/21/23 topical cream #30 grams Allergies Allergy/AdvReac Type Severity Reaction Status Date / Time No Known Allergies Allergy Verified 10/21/23 12:36 [facility] Disclaimer: The information contained in this section may have been updated after the patient was seen, as this information can be updated by other users. Medical History (Updated 10/21/23 @ 12:59 by Neil Cedeno APRN) History of COVID-19 Menopause Hypertension History of anemia Non-Hodgkin lymphoma Surgical History No significant past surgical history Family History Other No significant family history Social History Smoking Status: Never smoker alcohol intake: never substance use type: denies use current occupational status: retired Travel in the last 8 weeks: None ROS Obtained: Yes All systems reviewed & no additional complaints except as documented Constitutional Constitutional: Denies chills and Denies fever(s) Eyes Eyes: Denies eye discharge ENT Ears, Nose, Mouth, and Throat: Denies dizziness, Denies otalgia and Denies sore throat Cardiovascular Cardiovascular: Denies chest pain Respiratory Respiratory: Denies shortness of breath, Denies chest congestion, Denies cough, Denies stridor and Denies wheezing Gastrointestinal Gastrointestingal: Denies nausea or vomiting Musculoskeletal Musculoskeletal: Reports system reviewed and no additional complaints, except as documented and Denies arthralgias Integumentary/Breasts Skin/Breast: Reports as per HPI and Reports rash Neurologic Neurologic: Denies dizziness and Denies paresthesias Allergic/Immunologic Allergic/Immunologic: Denies wheezing Physical Exam General General appearance: alert and in no apparent distress Head Head exam: atraumatic, normocephalic and normal inspection Eye Eye exam: Present normal appearance, PERRL and EOMI ENT ENT exam: Present normal exam, normal oropharynx, mucous membranes moist, TM's normal bilaterally and normal external ear exam Neck Neck exam: Present normal inspection, full ROM and trachea midline; Absent meningismus or lymphadenopathy Chest Chest inspection: Present normal inspection and symmetric chest wall rise; Absent tenderness Respiratory Respiratory exam: Present normal lung sounds bilaterally; Absent respiratory distress Cardiovascular Cardiovascular exam: Present regular rate and normal rhythm; Absent JVD Abdominal Exam Abdominal exam: Present soft and normal bowel sounds; Absent distention, tenderness or guarding Extremities Exam Extremities exam: Present normal inspection, full ROM and normal capillary refill; Absent calf tenderness Back Exam Back exam: Present normal inspection; Absent tenderness Neurological Exam Neurological exam: Present alert and oriented X3 Psychiatric Psychiatric exam: Present normal affect and normal mood Skin Skin exam: Present rash (there are maculopapular lesions on her anterior thighs and abdomen. no wound, no drainage. ) Lymphatic Lymphatic Findings: no adenopathy Medical Decision Making Medical Records Medical records reviewed: No I reviewed the patient's medical records. Mundo Inquiry Pt receiving controlled substance: No Lab Data Lab results reviewed: Yes I reviewed the patient's lab results.
[2023-10-21 12:39] LABS: UTC Influenza A Antigen Negative (Negative)
[2023-10-21 12:40] LABS: UTC Influenza B Antigen Negative (Negative)
[2023-10-21] MEDS: DEXAMETHASONE 4MG/ML 1ML VIAL 8 MG IM (12:55)
[2023-10-21 13:22] VITALS: BP 123/47; PULSE 91; RESP 18; TEMP 36.8; O2SAT 98
== END 2023-10-21 13:22 | disposition home or self-care (01) ==
PROVIDERS: Emergency Provider Nurse Practitioner Family; PCP Internal Medicine Adolescent Medicine
DX: L25.9 Unspecified contact dermatitis, unspecified cause (principal); I10 Essential (primary) hypertension
CPT/HCPCS: 87804; 96372; 99204; 99212; G0463

== ENCOUNTER 2023-11-29 12:22 | Outpatient (CLI) | payer MEDICARE, SELFPAY ==
[2023-11-29 13:01] LABS: Basophils % 0.7 % (0.1-2.0); Eosinophils # 0.1 K/mm3 (0.0-0.4); Eosinophils % 1.5 % (0.1-12.0); Hematocrit 37.9 % (37.0-47.0); Hemoglobin 12.6 g/dL (12.2-16.2); Lymphocytes # 1.1 K/mm3 (0.7-4.5); Lymphocytes % 23.8 % (10-50); Mean Corpuscular HGB Conc 33.2 g/dL (31.8-35.4); Mean Corpuscular Volume 87.2 fl (81-99); Mean Platelet Volume 7.4 fl (7.4-10.4); Monocytes # 0.4 K/mm3 (0.1-1.0); Platelet Count 270 K/mm3 (142-424); Red Blood Count 4.35 M/mm3 (4.20-5.40); Red Cell Distribution Width 16.3 % (11.5-17.5); White Blood Count 4.6 K/mm3 (4.8-10.8)
[2023-11-29 14:05] LABS: Alanine Aminotransferase 25 U/L (12-78); Albumin Level 3.8 g/dl (3.5-5.0); Albumin/Globulin Ratio 1.8 (1.1-1.8); Alkaline Phosphatase 98 U/L (38-126); Anion Gap 10.5 mEq/L (5-15); Aspartate Amino Transferase 36 U/L (14-36); Bilirubin,Total 0.8 mg/dl (0.2-1.3); Blood Urea Nitrogen 15 mg/dl (7-17); Calcium 9.2 mg/dl (8.4-10.2); Carbon Dioxide 26 mmol/L (22.0-30.0); Chloride 106 mmol/L (98-107); Chol/HDL Ratio 3.4 (1-3.5); Cholesterol 245 mg/dl (140-200); Estimated Glomerular Filt Rate 98 ml/min (>60); GFR (African American) 119 ML/MIN (>60); Globulin 2.1 g/dL (1.3-3.2); Glucose 86 mg/dl (74-100); HDL Cholesterol 72 mg/dl (40-60); Potassium 4.5 mmoL/L (3.5-5.1); Sodium 138 mmol/L (136-145); Total Protein,Serum 5.9 g/dl (6.3-8.2); Triglycerides 97 mg/dl (30-150); VLDL Cholesterol 19 mg/dL (0-40)
[2023-11-29 14:17] LABS: Triiodothryronine (T3) Uptake 32 % (23.5-40.5)
[2023-11-29 14:18] LABS: Free Thyroxine Index 3.3 ug/dL (5.93-13.13); T4 (Thyroxine) 10.4 ug/dl (5.53-11.0)
[2023-11-29 14:57] LABS: Thyroid Stimulating Hormone 1.81 uIU/mL (0.465-4.68)
[2023-11-29 15:29] LABS: Vitamin B12 376 pg/mL (239-931)
[2023-12-06 10:25] LABS: 1,25 Dihydroxy Vitamin D 65 pg/mL (.); 1,25-Dihydroxy, Vitamin D-2 50 pg/mL (.); 1,25-Dihydroxy, Vitamin D-3 15 pg/mL (.)
== END 2023-11-29 23:59 | disposition home or self-care (01) ==
PROVIDERS: PCP Internal Medicine Adolescent Medicine; Visit Provider Internal Medicine Adolescent Medicine
DX: E55.9 Vitamin D deficiency, unspecified; E78.49 Other hyperlipidemia; G25.0 Essential tremor; C85.80 Other specified types of non-Hodgkin lymphoma, unspecified site
CPT/HCPCS: 36415; 80053; 80061; 82607; 82652; 82746; 84436; 84443; 84479; 85025

== ENCOUNTER 2025-01-06 12:38 | Outpatient (CLI) | payer MEDICARE, SELFPAY ==
--- OUTSIDE RECORDS SUMMARY | 2025-01-06 12:42 | XMS_ITS | Encounter Summary ---
Author Organization Healthcare Address [address] [place] [address] Care Team Providers Care Mixing Engineer Name Role Phone Earle Rincon MD Primary Care Provider [phone] Encounter Details Date Type Department Care Team (Late st Contact Info) Description 08/27/2023 Lab Requisition [facility] [address] [place] [address] Juvencio Lujan MD [address] [place] [address] Malignant neoplasm of left orbit (CMS/HCC) Social History Tobacco Use Types Packs/Day Years Used Date Smoking Tobacco: Never Assessed Comments Unknown Sex and Gender Information Value Date Recorded Sex Assigned at Not on file Legal Sex Female 7:26 PM EDT Gender Identity Not on file Sexual Orientation Not on file documented as of this encounter Plan of Treatment Upcoming Encounters Date Type Department Care Team (Late st Contact Info) Description 02/27/2025 11:00 AM EDT Consult [place] [facility] [address] [place] [address] Nichole Mcwilliams MD [address] [facility] [address] [place] [address] documented as of this encounter Procedures Procedure Name Priority Date/Time Associated Diagnosis Comments LEUKEMIA/LYMPHOMA - IMMUNOPHENOTYPING BY FLOW CYTOMETRY Routine 08/27/2023 12:22 PM EST Malignant neoplasm of left orbit (CMS/HCC) documented in this encounter Results * Leukemia/Lymphoma - Immunophenotyping by Flow Cytometry (08/27/2023 12:22 PM EST) Clinical Indication Left orbital tumor 08/27/2023 3:45 PM EST [facility] Flow Cytometry Interpretation MONOCLONAL B CELL POPULATION (APPROXIMATELY 80% OF EVENTS EXPRESSING BRIGHT CD45, CD19, CD20, KAPPA LIGHT CHAINS AND NEGATIVE FOR CD5 AND CD10), SEE COMMENT, LEFT ORBITAL TUMOR. 08/27/2023 3:45 PM EST [facility] Comments Specimen viability i s 97.5%. CD45/side scatter analysis shows predominantly lymphocytes. By forward/side scatter analysis, these lymphocytes demonstrate variation in size and are predominantly small to intermediate. By immunophenotypic analysis, a monoclonal kappa restricted B-cell population is identified with the aforementioned immunophenotype. This population accounts for 80% of total events and is negative for CD5 and CD10 expression. T cells comprise 14% of total events and show and increased CD4 to CD8 ratio of 14:1 with no immunophenotypic aberrancy. 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 Final interpretation requires clinical and morphologic correlation. Please correlate with the results of concurrent surgical specimen ([id number]). The following antibodies were used in this analysis: CD45, CD2, CD3, CD4, CD5, CD7, CD8, CD10, CD19, CD20, CD38, CD56, kappa surface light chains, lambda surface light chains. 08/27/2023 3:45 PM EST [facility] Disclaimer This test was developed and its performance characteristics determined by the Immuno-Molecular Pathology Laboratory at the [facility]. It has not been cleared or approved by the U.S. Food and Drug Administration. This test, which utilizes analyte specific reagents, does not require FDA approval. This test is used for clinical purposes. It should not be regarded as investigational or for research. This laboratory is certified under the Clinical Laboratory Improvement Amendments of 1988 (CLIA-88) as qualified to perform high complexity clinical laboratory testing. 08/27/2023 3:45 PM EST [facility] Pathologist Signature Reviewed by: Africa Acuna MD 08/27/2023 3:45 PM EST [facility] Tissue Tissue specimen / Unknown 08/27/2023 12:22 PM EST 08/27/2023 2:24 PM EST us Juvencio Lujan MD LAB FLOW CYTOMETRY ORDERABLES F inal Result [facility] [address] [place] [address] documented in this encounter Visit Diagnoses Diagnosis Malignant neoplasm of left orbit (CMS/HCC) documented in this encounter Care Teams Mixing Engineer Relationship Specialty Start Date End Date Earle Rincon MD [address] [place] [address] PCP - General Internal Medicine 07/02/23 documented as of this encounter
--- OUTSIDE RECORDS SUMMARY | 2025-01-06 12:42 | XMS_ITS | Encounter Summary ---
Author Organization [facility] Address [address] [place] [address] Care Team Providers Care Theoretical Physicist Name Role Phone Earle Rincon MD Primary Care Provider [phone] Encounter Details Date Type Department Care Team (Late st Contact Info) Description 08/27/2023 Lab Requisition [facility] [address] [place] [address] Juvencio Lujan MD [address] [place] [address] Malignant neoplasm of left orbit (CMS/HCC) Social [...] Consult [place] [facility] [address] [place] [address] Nichole Mcwilliams MD [address] [facility] [address] [place] [address] documented as of this encounter Procedures Procedure Name Priority Date/Time Associated Diagnosis Comments SURGICAL PATHOLOGY EXAM Routine 08/27/2023 Malignant neoplasm of left orbit (CMS/HCC) documented in this encounter Results * Surgical Pathology Exam (08/27/2023) Case Report Surgical Pathology Case: [id number] Authorizing Provider: Juvencio Lujan MD Collected: 08/27/2023 Ordering Location: [facility] Received: 08/27/2023 1333 Pathologist: Africa Acuna MD Specimen: Eye, Left, left orbital tumor 9:29 AM EST [facility] Final Diagnosis A. ORBITAL TUMOR, LEFT, BIOPSY: - MATURE b-CELL LYMPHOMA WITH PLASMACYTIC DIFFERENTIATION, MOST CONSISTENT WITH MARGINAL ZONE LYMPHOMA, SEE COMMENT. 9:29 AM [facility] at 0929 EST Comment Sections show an atypical infiltrate of predominantly small, monocytoid lymphocytes with pale cytoplasm. Occasional scattered large cells are present, but sheets of large cells are not identified. The concurrent flow cytometric analysis reveals involvement by a monoclonal B-cell population with a nonspecific immunophenotype (negative for CD5 and CD10) that comprise 80% of total cellularity ([id number]). Immunostains with appropriate controls have been performed to further evaluate the abnormal lymphocytes. The lymphocytic proliferation is diffusely positive for CD20, PAX5 and BCL2. B lymphocytes are negative for CD5, CD43 and cyclin D1. An immunostain for Ki67 shows a proliferation index of approximately 10 - 15%. Stainings for CD3, CD5 and CD43 highlight small T cells in a similar distribution. BCL6 decorates few germinal centers. Grandin/lambda dual stains highlight plasma cells that show kappa light chain restriction. 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 However, the possibility of a lymphoplasmacytic lymphoma cannot entirely be excluded. If clinically indicated, evaluation for MYD88 mutation can be performed upon the request. 9:29 AM EST [facility] Clinical Information Malignant neoplasm of left orbit 9:29 AM [facility] Special and Immunohistochemical Stains Immunohistochemic al stains were performed in addition to flow cytometry to further characterize the lymphocytes in the context of cell morphology and tissue architecture, since discrepancy between flow cytometric analysis and morphology can occur due to sampling bias, preferential loss of targeted cells, or hemodilution. IHC: A1-2 CD20 A1-3 PAX-5 A1-4 CD3 A1-5 CD43 A1-6 Cyclin D1 E-7 CD5 A1-8 BCL-2 A1-9 BCL-6 A1-10 Grandin + Lambda A1-11 Ki-67 Quantitative (%) All controls show appropriate reactivity. All immunohistochemis try, in situ hybridization, and histochemical tests were developed by and are performed at the [facility], [address] [place] [address]. All tests reported here, except those addressing HER2 (breast) and PD-L1 expression as predictive markers, have not been cleared by or approved by the US Food and Drug Administration (FDA). The FDA has determined that such clearance or approval is not necessary. The laboratory is regulated under CLIA as qualified to perform high-complexity testing. The tests are used for clinical purposes. They should not be regarded as investigational or for research. This assay has not been validated on decalcified tissues. Results should be interpreted with caution given the likelihood of false negativity on decalcified specimens. 9:29 AM EST [facility] Gross Description A. LEFT ORBITAL TUMOR Received in formalin labeled e ye, left orbital tumor , are 2 pink/red fragments of soft tissue measuring 0.6 cm in greatest dimension each. Specimen bisected and submitted entirely in cassette A1 Mary Jane Cohen 9:29 AM EST [facility] Note: A resident was involved in the service. I attest I examined the relevant preparations for the specimens and confirmed the diagnosis or interpretation. 9:29 AM EST [facility] Tissue Left eye structure / Unknown 08/27/2023 08/27/2023 1:33 PM EST Juvencio Lujan MD LAB PATHOLOGY ORDERABLES Final Result [facility] [address] [place] [address] documented in this encounter Visit Diagnoses Diagnosis Malignant neoplasm of left orbit (CMS/HCC) documented in this encounter Care Teams Theoretical Physicist Relationship Specialty Start Date End Date Earle Rincon MD [address] [place] [address] PCP - General Internal Medicine 07/02/23 documented as of this encounter
--- OUTSIDE RECORDS SUMMARY | 2025-01-06 12:42 | XMS_ITS | Encounter Summary ---
Author Organization [facility] Address [address] [place] [address] Care Team Providers Care Leather Tooler Name Role Phone Earle Rincon MD Primary Care Provider [phone] Reason for Referral * Consultation (Routine) - Closed Specialty Diagnoses / Procedures Referred By Contac t Referred To Contact Hand Surgery Diagnoses Injury of right hand, sequela Earle Rincon MD [address] [place] [address] Phone: tel: fax: [facility] [address] [place] [address] Phone: tel: fax: Referral ID Status Reason Start Date Expiration Date V isits Requested Visits Authorized [id number] Closed Specialty Services Required 05/19/2024 11/18/2025 1 1 Encounter Details Date Type Department Care Team (Late st Contact Info) Description 05/19/2024 Community Orders [facility] [address] [place] [address] Earle Rincon MD [address] [place] [address] Injury of right hand, sequela (Primary Dx) Social History Tobacco Use Types Packs/Day Years [...] Consult [place] [facility] [address] [place] [address] Nichole Mcwilliams MD [address] [place] [address] Scheduled Referrals Name Type Priority Associated Diagnoses Order Schedule Ambulatory referral to Hand Surgery Outpatient Referral Routine Injury of right hand, sequela Ordered: 05/19/2024 documented as of this encounter Visit Diagnoses Diagnosis Injury of right hand, sequela- Primary documented in this encounter Care Teams Leather Tooler Relationship Specialty Start Date End Date Earle Rincon MD [address] [place] [address] PCP - General Internal Medicine 07/02/23 documented as of this encounter
--- OUTSIDE RECORDS SUMMARY | 2025-01-06 12:42 | XMS_ITS | Clinical Summary ---
Author Organization Healthcare Address [address] [place] [address] Care Team Providers Care Volleyball Assembler Name Role Phone Earle Rincon MD Primary Care Provider [phone] Allergies No known active allergies Medications No known medications Active Problems No known active problems Encounters Date Type Department Care Team Description 10/31/2024 Telephone [place] [facility] [address], [address] [place] [address] Nichole Mcwilliams MD from Last 3 Months Social History Tobacco Use Types Packs/Day Years Used Date Smoking Tobacco: Never Smokeless Tobacco: Never Tobacco Cessation:Counseling Given: Not Answered PHQ-2 Answer Date Recorded Patient Health Questionnaire-2 Score 0 06/12/2024 PHQ-9 Answer Date Recorded Patient Health Questionnaire-9 Score 0 06/12/2024 Comments Unknown Sex and Gender Information Value Date Recorded Sex Assigned at Not on file Legal Sex Female 7:26 PM EDT Gender Identity Not on file Sexual Orientation Not on file Last Filed Vital Signs Vital Sign Reading Time Taken Comments Blood Pressure 179/112 06/12/2024 1:59 PM EST Pulse 77 06/12/2024 1:59 PM EST Temperature 36.9 C (98.4 F) 06/26/2022 4:09 PM EST Respiratory Rate 18 06/26/2022 4:09 PM EST Oxygen Saturation 97% 06/12/2024 1:59 PM EST Inhaled Oxygen Concentration - - Weight 77.1 kg (170 lb) 06/12/2024 1:59 PM EST Height 154.9 cm (5' 1 ) 06/12/2024 1:59 PM EST Body Mass Index 32.12 06/12/2024 1:59 PM EST Plan of Treatment Upcoming Encounters Date Type Department Care Team (Late st Contact Info) Description 02/27/2025 11:00 AM EDT Consult [place] [facility] [address] [place] [address] Nichole Mcwilliams MD [address] [place] [address] Health Maintenance Due Date Last Done Comments [facility]-Bone Density Scan 1950 [facility]-Hepatitis C Screening 1950 [facility]-Medicare Annual Wellness (AWV) 1950 [facility]-/Child/Adol SDOH Screenings 1950 [facility]- SDOH Screenings 02/07/1968 [facility]-Adult SDOH Screenings 02/07/1968 CT Colonography 1995 Colonoscopy 1995 FIT-DNA 1995 FIT 1995 FOBT 1995 Sigmoidoscopy 1995 [facility]-Colorectal Cancer Screening 1995 [facility]-Breast Cancer Screening 03/29/202303/03, 03/29/2021 [id number] Vaccine ( - season) 2024 10/06/2020 [facility]-RSV Vaccine: 60+ Years o r (1 - 1-dose 75+ series) 2025 [facility]-Influenza Vaccine (#1) 03/02/202505/06, 05/01/2023 [facility]-Depression Screening 06/12/2025 024, 06/12/2024 [facility]-DTaP,Tdap,and Td Vaccine s (2 - Td or Tdap) 01/25/2033 01/25/2023, 08/28/2019 [facility]-Pneumococcal Vaccine: 50 + Years Completed 11/16/2022 [facility]-Zoster Vaccines Completed 05/01/2023, 01/25/2023 [facility]-Obesity Intervention Completed 06/12/2024 HPV Vaccines Aged Out No longer eligi ble based on patient's age to complete this topic [facility]-HIB Vaccines Aged Out No longer e ligible based on patient's age to complete this topic [facility]-Hepatitis A Vaccines Aged Out No longer eligible based on patient's age to complete this topic [facility]-IPV Vaccines Aged Out No longer e ligible based on patient's age to complete this topic [facility]-Rotavirus Vaccines Aged Out No lo nger eligible based on patient's age to complete this topic Insurance [facility] MEDICARE Care Teams Volleyball Assembler Relationship Specialty Start Date End Date Earle Rincon MD [address] [place] [address] PCP - General Internal Medicine 07/02/23
--- OUTSIDE RECORDS SUMMARY | 2025-01-06 12:42 | XMS_ITS | Encounter Summary ---
Author Organization [facility] Address [address] [place] [address] Care Team Providers Care Post Production Assistant Name Role Phone Earle Rincon MD Primary Care Provider [phone] Encounter Details Date Type Department Care Team (Late st Contact Info) Description 10/31/2024 Telephone [place] [facility] [address] [place] [address] Nichole Mcwilliams MD [address] [place] [address] Social History Tobacco Use Types Packs/Day Years Used Date Smoking Tobacco: Never Smokeless Tobacco: Never PHQ-2 Answer Date Recorded Patient Health Questionnaire-2 Score 0 06/12/2024 PHQ-9 Answer Date Recorded Patient Health Questionnaire-9 Score 0 06/12/2024 Comments Unknown Sex and Gender Information Value Date Recorded Sex Assigned at Not on file Legal Sex Female 7:26 PM EDT Gender Identity Not on file Sexual Orientation Not on file documented as of this encounter Miscellaneous Notes * Telephone Encounter - Awa Espinoza - 10/31/2024 3:55 PM EDT *called pt, appt is still scheduled, No further action needed... * Telephone Encounter - Yue Garcia - 10/31/2024 1:00 PM EDT Patient Phone Message Reason for Call: Pt called to cancel her appt with Dr Mcwilliams for 02/27. Now she changed her mind and would like to be seen. Please advise Best contact number and optimal time of day to reach caller: [phone]/pt Note: Please do not reply to this message. Follow-up communication and further actions as a result of this message need to be communicated with the patient directly, if the patient is not active onMyChart. If the patient is active on MyChart, they will receive notification of the communication/outcome via [employer]. documented in this encounter Plan of Treatment Upcoming Encounters Date Type Department Care Team (Late st Contact Info) Description 02/27/2025 11:00 AM EDT Consult [place] [facility] [address] [place] [address] Nichole Mcwilliams MD [address] [facility] [address] [place] [address] documented as of this encounter Visit Diagnoses Not on filedocumented in this encounter Additional Health Concerns Assessment Noted Time PHQ-9 Depression Total Score: 0 06/12/20 24 1:58 PM EST A fall risk assessment has been complete d for the patient 06/12/2024 1:57 PM EST A Body Mass Index follow-up plan has been documented for the patient 06/19/2024 3:36 PM EST documented as of this encounter Care Teams Post Production Assistant Relationship Specialty Start Date End Date Earle Rincon MD [address] [place] [address] PCP - General Internal Medicine 07/02/23 documented as of this encounter
[2025-01-06 14:02] LABS: Hematocrit 38.6 % (37.0-47.0); Hemoglobin 13.0 g/dL (12.2-16.2); Immature Granulocytes % 0.2 %; Mean Corpuscular HGB Conc 33.7 g/dL (31.8-35.4); Mean Corpuscular Hemoglobin 28.6 pg (27.0-31.2); Mean Corpuscular Volume 85.0 fl (81-99); Nucleated Red Blood Cells % 0 %; Platelet Count 281 K/mm3 (142-424); Red Blood Count 4.54 M/mm3 (4.20-5.40); Red Cell Distribution Width-SD 41.3 fL; White Blood Count 6.3 K/mm3 (4.8-10.8)
[2025-01-06 14:34] LABS: Alanine Aminotransferase 13 U/L (12-78); Albumin Level 4.4 g/dl (3.5-5.0); Albumin/Globulin Ratio 2.3 (1.1-1.8); Alkaline Phosphatase 118 U/L (38-126); Anion Gap 14.8 mEq/L (5-15); Aspartate Amino Transferase 23 U/L (14-36); Bilirubin,Total 0.8 mg/dl (0.2-1.3); Blood Urea Nitrogen 14 mg/dl (7-17); Calcium 9.6 mg/dl (8.4-10.2); Carbon Dioxide 27 mmol/L (22.0-30.0); Chloride 102 mmol/L (98-107); Cholesterol 256 mg/dl (140-200); Creatinine,Serum 0.80 mg/dl (0.52-1.04); Estimated Glomerular Filt Rate 70 ml/min (>60); GFR (African American) 85 ML/MIN (>60); Globulin 1.9 g/dL (1.3-3.2); Glucose 78 mg/dl (74-100); HDL Cholesterol 69 mg/dl (40-60); Potassium 3.8 mmoL/L (3.5-5.1); Sodium 140 mmol/L (136-145); Total Protein,Serum 6.3 g/dl (6.3-8.2); Triglycerides 83 mg/dl (30-150)
[2025-01-06 14:46] LABS: 25-OH Vitamin D, Total 20.2 ng/mL (30-100)
[2025-01-06 14:51] LABS: Free Thyroxine Index 3.1 ug/dL (5.93-13.13); T4 (Thyroxine) 9.5 ug/dl (5.53-11.0); Triiodothryronine (T3) Uptake 33 % (23.5-40.5)
[2025-01-06 15:01] LABS: Thyroid Stimulating Hormone 2.18 uIU/mL (0.465-4.68)
[2025-01-06 15:04] LABS: Thyroid Stimulating Hormone 2.18 uIU/mL (0.465-4.68)
[2025-01-06 15:20] LABS: Vitamin B12 503 pg/mL (239-931)
== END 2025-01-06 23:59 | disposition home or self-care (01) ==
LOC: LAB 12:40
PROVIDERS: PCP Internal Medicine Adolescent Medicine; Visit Provider Internal Medicine Adolescent Medicine
DX: E55.9 Vitamin D deficiency, unspecified (principal); I10 Essential (primary) hypertension; E78.5 Hyperlipidemia, unspecified; R25.1 Tremor, unspecified
CPT/HCPCS: 36415; 80053; 80061; 82306; 82607; 84436; 84443; 84479; 85025